=== PATIENT | male | born 1965 | race Hispanic/Latino ===

== ENCOUNTER 2017-08-06 18:52 | Emergency (ER) | payer SELFPAY ==
[2017-08-06 19:55] LABS: #Eosinphils 0.1 thou/uL (0.0-0.7); #Monocytes 0.7 thou/uL (0.11-0.59); #Neutrophils 6.3 thou/uL (1.40-6.50); %Basophils 0.1 % (0.0-1.0); %Eosinophils 0.8 % (0.0-10.0); %Lymphocytes 12.8 % (21.0-51.0); Hematocrit 33.2 % (42.0-52.0); Mean Platelet Volume 8.4 fL (7.4-10.4); Red Blood Cell (RBC) Count 3.82 mill/uL (4.70-6.10); White Blood Cell (WBC) Count 8.1 thou/uL (4.8-10.8)
[2017-08-06 19:59] LABS: PTT 30.5 SEC (22.9-36.1); Prothrombin Time 15.3 SEC (12.0-14.7)
[2017-08-06 20:15] LABS: ALT (SGPT) 26 U/L (8-55); AST (SGOT) 52 U/L (5-34); Alkaline Phosphatase 118 U/L (40-150); Anion Gap 12 mmol/L (10-20); BUN (Urea Nitrogen) 43 mg/dL (8.4-25.7); Bilirubin, Total 0.4 mg/dL (0.2-1.2); Calc. Creatinine Clearance 0 mL/min (70-130); Calcium 7.8 mg/dL (7.8-10.44); Carbon Dioxide 15 mmol/L (22-29); Chloride 104 mmol/L (98-107); Estimated GFR-MDRD 36; Lipase 246 U/L (8-78); Protein, Total 5.7 g/dL (6.0-8.3)
--- NOTE | 2017-08-06 20:47 | RAD ---
HISTORY: Abdominal pain and ascites. AP view chest obtained on 08/06/17. AP view chest demonstrates the lungs to be well aerated. No evidence of active intrathoracic disease seen. No evidence of effusions, pneumonia or pneumothorax seen. IMPRESSION: Unremarkable AP view chest. POS: [facility]
[2017-08-06] MEDS ORDERED: HYDROcodone/Acetaminophen 10/325 mg Tablet ONE (22:41)
== END 2017-08-06 22:46 | disposition home or self-care (01) ==
LOC: ERS 18:52
DX: R18.8 Other ascites (principal); Z79.899 Other long term (current) drug therapy
CPT/HCPCS: 71010; 80053; 83690; 85025; 85610; 85730; 93005

== ENCOUNTER 2017-08-13 12:34 | Inpatient (IN) | payer MEDICAID, SELFPAY ==
[2017-08-13 15:17] LABS: #Eosinphils 0.1 thou/uL (0.0-0.7); #Lymphocytes 1.1 thou/uL (1.20-3.40); #Monocytes 0.9 thou/uL (0.11-0.59); #Neutrophils 4.9 thou/uL (1.40-6.50); %Basophils 0.4 % (0.0-1.0); %Eosinophils 1.6 % (0.0-10.0); %Lymphocytes 15.9 % (21.0-51.0); Hematocrit 31.6 % (42.0-52.0); Mean Platelet Volume 8.7 fL (7.4-10.4); Red Blood Cell (RBC) Count 3.58 mill/uL (4.70-6.10); White Blood Cell (WBC) Count 7.1 thou/uL (4.8-10.8)
[2017-08-13 15:53] LABS: ALT (SGPT) 24 U/L (8-55); AST (SGOT) 48 U/L (5-34); Alkaline Phosphatase 139 U/L (40-150); Anion Gap 13 mmol/L (10-20); BUN (Urea Nitrogen) 48 mg/dL (8.4-25.7); Bilirubin, Total 0.4 mg/dL (0.2-1.2); Calc. Creatinine Clearance 0 mL/min (70-130); Calcium 7.5 mg/dL (7.8-10.44); Carbon Dioxide 15 mmol/L (22-29); Chloride 107 mmol/L (98-107); Estimated GFR-MDRD 45; Globulin 2.8 g/dL (2.4-3.5); Lipase 156 U/L (8-78); Protein, Total 5.2 g/dL (6.0-8.3)
[2017-08-13] MEDS ORDERED: Morphine 10 MG/ML VIAL ONE (16:45)
[2017-08-13] MEDS ORDERED: Ondansetron HCl/PF 4 MG/2 ML Vial IVP PRN (17:10)
[2017-08-13] MEDS ORDERED: Sodium Chloride 0.9% 1,000 ML IV SCH (17:15)
[2017-08-13] MEDS ORDERED: Potassium Chloride 20 MEQ TAB PO SCH (17:30)
[2017-08-13 18:18] VITALS: BMI 24.7
[2017-08-13] MEDS ORDERED: FLU VACC QS2017-18 36 mo. & older 0.5 ML SYRINGE IM ONE (18:30)
[2017-08-13] MEDS: Nicotine 21 MG PATCH TD SCH (18:34)
--- NOTE | 2017-08-13 22:28 | HP ---
CHIEF COMPLAINT: Abdominal pain. HISTORY OF PRESENT ILLNESS: This is a 52-year-old pleasant gentleman with a history of cirrhosis an d ascites, comes into the hospital with abdominal distention and pain or discomfort because of that. The patient says that he gets his fluid removed at least 1 every week and the last time he removed was in this ED one week ago and paracentesis was performed. He came back to the hospital because o f distention of the abdomen. Denies any fever, chills, diarrhea, dysuria, or polyuria. He had one episode of hematemesis last year for which he was treated in the different hospital. He has not vom ited any blood since then. He has been admitted for further evaluation and treatment of that. PAST MEDICAL HISTORY: The patient's past medical history is significant for cirrhosis, hepatitis C. SOCIAL HISTORY: Former drug user, used to drink a lot before. Denies any drinking right now. [employer] executive use, used to do IV cocaine in the past. MEDICATIONS: Aldactone. He says he is compliant with that. ALLERGIES: No known drug allergies. PAST SURGICAL HISTORY: Significant for umbilical hernia repair. FAMILY HISTORY: Negative for diabetes and hypertension. REVIEW OF SYSTEMS: Significant for abdominal discomfort and distention, otherwise, no fever, no chi lls, no headache, no appetite, no hearing loss, no latencies. No cough, no chest pain. No diarrhea , dysuria, or polyuria. No memory or mood changes. No neck pain. PHYSICAL EXAMINATION: VITAL SIGNS: Blood pressure is 112/73, pulse is 109, respirations 18, temperature 98.5. GENERAL: Patient is lying in bed, in no apparent distress. HEENT: Atraumatic and normocephalic. Pupils are equally round and react to light. Extraocular mov ements intact. Mucous membranes moist. NECK: Supple. No JVD. CHEST: Breath sounds. There are no rales or rhonchi. HEART: S1 and S2. No murmurs or gallops. ABDOMEN: Soft, distended, umbilical hernia scar seen. Right inguinal hernia present, which is redu cible, tympanic to percussion. EXTREMITIES: No cyanosis, clubbing, or edema. Distal pulses present. NEUROLOGIC: Alert, awake, and oriented. No cranial deficits. No sensorimotor deficits. LABORATORY DATA: Lipase is 156, potassium is 3.4, sodium is 132, creatinine is 1.62, BUN is 48, kyrie cium is 7.5, albumin is 2.4. ASSESSMENT AND PLAN: 1. Abdominal discomfort secondary to fluid accumulation secondary to ascites. They will arrange fo r an ultrasound-guided paracentesis and send the fluid for studies. We will consult GI. We will co nsult case management to see if they can make arrangements for this patient to get tapped as an outp atient, so that he does not have to come back to the emergency room all the time. Also, there is a transient elevation in the lipase. We will check, trend lipase to see and make recommendations. We will keep him on clear liquid diet for now. 2. Hepatitis C, stable. Follow GI plan, cirrhosis with ascites with one episode of hematemesis. N o episodes of hepatic encephalopathy. We will follow GI recommendations. We will continue spironol actone and further medications per GI. 3. Hyponatremia. We will gently hydrate the patient with 50 mL of normal saline for a day. 4. Hypokalemia. We will replace that. 5. Acute renal failure probably secondary to dehydration. We will monitor creatinine function in t his hospital stay. 6. Elevated BUN. We will check for fecal occult blood. 7. Right inguinal hernia. Reducible, though it hurts when he walks. He says that it is reducible. We will consult with GI to see what needs to be done. 8. History of cocaine use. The patient states he stopped using. 9. Protein calorie malnutrition, moderate. We will encourage p.o. Patient to continue to eat well and get dietary consult. 10. Sequential compression devices for deep venous thrombosis prophylaxis. I will follow the labs and do the need for.
[2017-08-14] MEDS: Morphine 10 MG/ML VIAL SLOW IVP PRN ×2 (00:36→09:55)
[2017-08-14 05:40] LABS: #Eosinphils 0.2 thou/uL (0.0-0.7); #Lymphocytes 1.3 thou/uL (1.20-3.40); #Monocytes 0.9 thou/uL (0.11-0.59); #Neutrophils 3.8 thou/uL (1.40-6.50); %Basophils 0.4 % (0.0-1.0); %Eosinophils 2.5 % (0.0-10.0); %Lymphocytes 21.3 % (21.0-51.0); %Monocytes 14.7 % (0.0-10.0); Hematocrit 28.5 % (42.0-52.0); Mean Platelet Volume 7.9 fL (7.4-10.4); Red Blood Cell (RBC) Count 3.22 mill/uL (4.70-6.10); White Blood Cell (WBC) Count 6.2 thou/uL (4.8-10.8)
[2017-08-14 05:51] LABS: Anion Gap 12 mmol/L (10-20); BUN (Urea Nitrogen) 47 mg/dL (8.4-25.7); Calc. Creatinine Clearance 57 mL/min (70-130); Calcium 7.7 mg/dL (7.8-10.44); Carbon Dioxide 14 mmol/L (22-29); Chloride 107 mmol/L (98-107); Estimated GFR-MDRD 43; Lipase 81 U/L (8-78)
[2017-08-14] MEDS ORDERED: Sodium Bicarbonate 2.4 MEQ/5 ML ONE (07:38)
[2017-08-14 08:39] LABS: BF Reference Range Comment Note:
[2017-08-14 09:11] LABS: Fluid, LDH 28 U/L (Not Available); Fluid, Protein Less than 1.0 g/dL (Not Available)
[2017-08-14 09:42] LABS: BF Color Yellow
[2017-08-14 09:46] LABS: BF WBC/Nonhematics Ct. - Manua 22 /cumm
[2017-08-14 10:09] LABS: Number Cells Counted-Fluids 100
[2017-08-14] MEDS ORDERED: Albumin 25% 25 GM/100 ML BOT IVPB SCH (12:15)
--- NOTE | 2017-08-14 12:41 | ULT ---
SONOGRAPHIC GUIDED PARACENTESIS: HISTORY: Hepatitis. Cirrhosis. Recurrent ascites. FINDINGS: After explaining the procedure and answering all questions, the anterior aspect of the right lower q uadrant was prepped and draped in the usual sterile fashion. Sterile technique, buffered local anes thesia, sonographic guidance, and an anterior right lower quadrant approach were used to carefully a dvance the tip of a 19 gauge Yueh needle and catheter into the free fluid. The catheter was left to drain a total volume of 6 L of slightly milky white liquid. A portion was sent to the laboratory f or analysis. The patient tolerated the procedure well and was returned in improved condition. IMPRESSION: Technically successful sonographic guided paracentesis. POS: [facility]
--- NOTE | 2017-08-14 16:13 | DIS ---
DATE OF ADMISSION: 08/13/2017 DATE OF DISCHARGE: 08/14/2017 DIAGNOSES ON ADMISSION: Abdominal pain, secondary to ascites, secondary to cirrhosis of liver. The patient also has hepatitis C. Patient also uses tobacco. DISCHARGE DIAGNOSES: 1. History of IV cocaine use in the past. 2. Hyponatremia. 3. Hypokalemia. 4. Some dehydration. 5. Patient also has a right inguinal hernia, which is stable. 6. The patient also has protein-calorie malnutrition. DISCHARGE MEDICATIONS: Aldactone 25 mg p.o. daily, Lasix 20 mg p.o. daily, Nexium 20 mg. CONSULTATIONS: The patient's consultants on the case were GI. BRIEF HOSPITAL COURSE: This is a 52-year-old pleasant gentleman, who was apparently in his usual [facility], came into the hospital with abdominal pain, because of abdominal distention secondary to ascites. He was admitted to the hospital. He had a paracentesis done and 6 liters were removed . He also got some albumin after that and he is right now medically stable to be discharged with ou tpatient follow up with PCP and he is asked to come back to the emergency room in case symptoms recu r. Total time for this discharge took 35 minutes.
[2017-08-14] MEDS: HYDROcodone/Acetaminophen 5/325 mg Tablet PO PRN (22:07)
[2017-08-14] MEDS: Nicotine 21 MG PATCH TD SCH (23:33)
[2017-08-15] MEDS ORDERED: ISOVUE-370 76%-LOCM 1 ML ONE (07:43)
--- NOTE | 2017-08-15 12:22 | ULT ---
LIMITED ABDOMINAL SONOGRAM: HISTORY: Recurrent ascites. FINDINGS: Sonographic survey of the abdomen shows a moderate to large amount of remaining fluid. The patient had a paracentesis performed one day ago with 6 L drained. There is not good documentat ion of previous paracentesis and volumes drained. Given the high volume of his initial local draina ge yesterday, please wait an additional two days before draining additional fluid from the abdomen. POS: [facility]
[2017-08-15] MEDS ORDERED: Spironolactone 100 MG TAB PO SCH (14:00)
--- NOTE | 2017-08-15 14:27 | PDOC.PN ---
- Subjective Encounter Start Date: 08/15/17 Encounter Start Time: 14:24 c/o abd pain and distention no n/v no f/c - Objective MAR Reviewed: Yes Vital Signs & Weight: Vital Signs (12 hours) Temp Pulse Resp BP Pulse Ox 08/15/17 11:48 98.6 F 83 20 108/70 100 08/15/17 08:00 98.5 F 73 20 94/68 98 08/15/17 07:25 98.5 F 78 18 08/15/17 04:55 98.5 F 78 18 106/63 99 08/15/17 04:33 99 Weight Weight 172 lb 4.8 oz I&O: 08/14/17 08/15/17 08/16/17 06:59 06:59 05:59 Intake Total 452 1415 600 Output Total 350 6405 Balance 102 -4990 600 Result Diagrams: 08/14/17 05:25 08/14/17 05:25 Phys Exam - Physical Examination Constitutional: NAD HEENT: PERRLA Neck: no JVD Respiratory: no rales Cardiovascular: no significant murmur distended, fluid thrill appreciated Musculoskeletal: pulses present Neurological: moves all 4 limbs Psychiatric: A&O x 3 Dx/Plan (1) Ascites, malignant Code(s): R18.0 - MALIGNANT ASCITES Status: Acute (2) Cirrhosis Code(s): K74.60 - UNSPECIFIED CIRRHOSIS OF LIVER Status: Acute (3) Protein-calorie malnutrition, moderate Code(s): E44.0 - MODERATE PROTEIN-CALORIE MALNUTRITION Status: Acute (4) Hyponatremia Code(s): E87.1 - HYPO-OSMOLALITY AND HYPONATREMIA Status: Acute - Plan * do tap on thursday * f/u ct * f/u gi plan
[2017-08-15 14:55] LABS: Prothrombin Time 16.3 SEC (12.0-14.7)
--- NOTE | 2017-08-15 15:11 | CON ---
DATE OF CONSULTATION: 08/15/2017 REQUESTING PHYSICIAN: Syd Leon MD REASON FOR CONSULTATION: Cirrhosis and ascites. HISTORY OF PRESENT ILLNESS: Kennedy Middleton is a 52-year-old gentleman who is new to [facility] just move d here about a week ago from [place]. He is admitted to the hospital a couple of nights ago with rec urrent ascites. He has not established care with any providers here in [facility] yet. It is a bit diffi cult to obtain history from the patient is for some reason he seems hesitant offer any details about his history why he came to [facility], etc. Briefly, he explains that he was diagnosed with cirrhosis a couple of years ago. When asked what his presenting symptoms are, he says \\\\"they just wanted to st art doing a bunch of tests.\\\\" It seems that he was diagnosed with hepatitis C. Other providers preciado ve documented that he used to abuse alcohol, but he denies to me that he ever abused alcohol. He do es not drink any alcohol at this time. He does say that he was told that he had hepatitis C and low t this was never treated. He seems to recall the name of the medication lactulose, but is unsure wh ether he ever had any encephalopathy and he has not been taking lactulose recently. He is unsure wh en his last cross sectional abdominal imaging was or whether he ever had any. He does say that he h as had issues with ascites for the past couple of years and that for 2 years, he has been getting we ekly paracentesis at the hospital in [place], [place]. He tells me he was taking spironolactone 2 5 mg daily, but had run out of that medicine since arrival here and is currently not been taking any thing. I asked if he had ever been on other diuretics prior to this and he said he thinks he had be en on Lasix before, but it did not work so he was taken off of it. He has not been on any low sodiu m diet, says he has never heard of the low sodium diet. He came into the ER just after arrival into [facility] a week ago when he had a paracentesis of 4 liters at that time, he came back to the ER 2 night s ago and it was decided to admit him for further workup and paracentesis. Yesterday, he had a para centesis of 6 liters of fluid, but his abdomen remains very distended. He says that he has 12 to 15 liters of fluid removed every week and he cannot understand why this is being done. He is quite ru de and is frankly demanding to have repeat paracentesis today. Though, Radiology has rightly recomm ended against this. The patient had really does not have any other symptoms aside from abdominal di scomfort due to the distention from ascites. He does not appear to be encephalopathic and denies an y confusion. He says that he thinks he had an upper endoscopy in the past, is unsure what the findi ngs are, it does not look like he was never put on any medications for variceal prophylaxis. REVIEW OF SYSTEMS: Full review of systems including constitutional, head, eyes, ears, nose, throat, GI, , cardiovascular, respiratory, musculoskeletal, and neurologic systems is negative except as noted in the HPI. PAST MEDICAL HISTORY: Hepatitis C, cirrhosis, ascites with frequent paracentesis at an outside hosp ital in [place], umbilical hernia repair. ALLERGIES: No known drug allergies. OUTPATIENT MEDICATIONS: Spironolactone 25 mg daily, but the patient says he ran out of this several days ago. INPATIENT MEDICATIONS: [place] p.r.n., Zofran p.r.n. FAMILY HISTORY: Negative for liver disease. SOCIAL HISTORY: The patient denies smoking. He has a history of prior cocaine use. He has yoli singh prior history of alcohol abuse, but to me he denies any alcohol use. PHYSICAL EXAMINATION: VITAL SIGNS: Temperature 98.6, pulse 83, blood pressure 108/70, 100% oxygen saturation on room air. GENERAL: A 52-year-old man lying in bed comfortably in no acute distress. MENTAL: He is alert and oriented. He is able to answer questions appropriately, but he is not very forthcoming in his answers, frankly refusing to answer some questions and quite rude. SKIN: No jaundice, no rashes were palpable. He has multiple tattoos to the trunk and extremities. EYES: No scleral icterus. Extraocular movements intact. ENT: Mucous membranes moist, no oral lesions. LYMPH: No submandibular, supraclavicular lymphadenopathy. THYROID: Nontender to palpation. HEART: Regular rate and rhythm. LUNGS: Clear to auscultation bilaterally. ABDOMEN: Markedly distended with ascites, tense, dullness to percussion in the flanks. Bowel sound s are present, soft, nontender to palpation throughout. EXTREMITIES: No peripheral edema. VESSELS: Radial pulses 2+ bilaterally. NEUROLOGICAL: Cranial nerves II-XII intact bilaterally, no asterixis. LABORATORY STUDIES: WBC 6.2, hemoglobin 9.1, platelets 167. Sodium 129, potassium 4.1, BUN 47, cre atinine 1.68. Ammonia only 25, lipase 81. Total bilirubin 0.4, alkaline phosphatase 139, AST 48, A LT 24, albumin 2.4. Paracentesis fluid studies from yesterday show only 22 WBCs, fluid total protei n is less than 1, triglycerides 45, fluid cultures shows no growth to date. IMAGING STUDIES: Abdominal ultrasound shows moderate to large amount of ascites. This was a limite d ultrasound and really did not get good views of the liver or biliary system. ASSESSMENT AND PLAN: 1. Cirrhosis. 2. Reported history of hepatitis C. 3. Ascites, evidently refractory for the past couple of years. This is a difficult situation. The patient is new to [facility] and has very specific expectations on what he needs, but it appears has been either noncompliant with therapy or has not been forthcoming with prior treatment recommendations f rom his physicians in [place]. It is not clear to me whether his ascites is truly refractory or whet her he has ever had a good trial of low sodium diet and diuretics. I would favor being aggressive w ith diuretics if able based on renal function and blood pressures, as well as strict adherence to a low sodium diet of less than 2000 mg per day. He may indeed need several more paracentesis, but low t is not really evident to me yet. The problem is that he is quite demanding about this and is thre atening to leave the hospital, but also refusing to leave the hospital when comes down to it. He also needs further workup to definitively documented hepatitis C genotype and viral load, etc. H e needs HCC screening so we will order an AFP as well as cross sectional imaging with a CT of the li richardson. He needs other liver lab workup to exclude other causes for cirrhosis and portal hypertension and I have gone ahead and ordered that. At some point, he will need an upper endoscopy to screen fo r esophageal varices, but there is no concern for bleeding at this time. He does not appear to have any hepatic encephalopathy, so I think we can avoid lactulose at present. As he is uninsured and s eems to have such that issue with noncompliance, I do not think he would be a candidate for liver tr ansplant or liver transplant center referral at this time.
--- NOTE | 2017-08-15 16:46 | CT ---
CT ABDOMEN AND PELVIS WITH IV CONTRAST 08/15/17 HISTORY: Abdominal pain. Cirrhosis. FINDINGS: Mild atelectasis is present at the lung bases. A large amount of free fluid is present throughout th e abdomen and pelvis and extends into a right inguinal hernia. The liver is small with a nodular con tour and heterogeneous density. Hyperdense stones are present within the dependent portion of the ga llbladder lumen. The spleen is 12.8 cm in length. Small calcifications are present within nondilated calyces of each kidney, measuring up to 0.5 cm at the superior pole of the right kidney. There is c alcification in the arterial structures. IMPRESSION: 1. Cirrhosis with mild splenomegaly and large amount of ascites. 2. Cholelithiasis. 3. Nonobstructing bilateral renal calculi. POS: [facility]
[2017-08-15] MEDS: Nicotine 21 MG PATCH TD SCH (18:28)
[2017-08-15] MEDS: MORPHINE 10 MG/ML SYRINGE IV PRN (20:53)
[2017-08-15] MEDS: Acetylcysteine 10% 100 MG/ML 30 ml Vial PO SCH (20:56)
[2017-08-16 05:27] LABS: Anion Gap 11 mmol/L (10-20); BUN (Urea Nitrogen) 42 mg/dL (8.4-25.7); Calc. Creatinine Clearance 62 mL/min (70-130); Calcium 7.6 mg/dL (7.8-10.44); Carbon Dioxide 15 mmol/L (22-29); Chloride 107 mmol/L (98-107); Estimated GFR-MDRD 47
[2017-08-16] MEDS: MORPHINE 10 MG/ML SYRINGE IV PRN ×3 (08:01→23:52)
[2017-08-16] MEDS: Furosemide 40 MG TAB PO SCH (08:01)
[2017-08-16] MEDS: Acetylcysteine 10% 100 MG/ML 30 ml Vial PO SCH ×2 (11:35→21:57)
[2017-08-16] MEDS: HYDROcodone/Acetaminophen 5/325 mg Tablet PO PRN (11:37)
--- NOTE | 2017-08-16 12:31 | PDOC.PN ---
- Subjective Encounter Start Date: 08/16/17 Encounter Start Time: 10:40 Subjective: has abd distention with dyscomfort - Objective MAR Reviewed: Yes Vital Signs & Weight: Vital Signs (12 hours) Temp Pulse Resp BP Pulse Ox 08/16/17 11:53 98.1 F 107 H 16 118/1 L 100 08/16/17 08:00 98.4 F 91 16 99 08/16/17 07:17 98.4 F 91 16 117/74 99 08/16/17 04:00 98.3 F 88 16 110/66 99 Weight Weight 172 lb 4.8 oz I&O: 08/15/17 08/16/17 08/17/17 07:59 06:59 06:59 Intake Total Output Total Balance Result Diagrams: 08/14/17 05:25 08/16/17 04:57 Phys Exam - Physical Examination HEENT: PERRLA, moist MMs Neck: no JVD, supple Respiratory: no wheezing, no rales Cardiovascular: RRR, no significant murmur Gastrointestinal: positive bowel sounds ascites+++ Musculoskeletal: no edema, pulses present Neurological: non-focal, moves all 4 limbs Psychiatric: A&O x 3 Dx/Plan (1) Ascites of liver Code(s): R18.8 - OTHER ASCITES Status: Acute (2) CIRA (acute kidney injury) Code(s): N17.9 - ACUTE KIDNEY FAILURE, UNSPECIFIED Status: Acute Comment: hepatorenal syndrome (3) Iron deficiency anemia Code(s): D50.9 - IRON DEFICIENCY ANEMIA, UNSPECIFIED Status: Acute Qualifiers: Iron deficiency anemia type: unspecified iron deficiency Qualified Code(s) : D50.9 - Iron deficiency anemia, unspecified (4) Metabolic acidosis Code(s): E87.2 - ACIDOSIS Status: Acute (5) Hepatitis C Code(s): B19.20 - UNSPECIFIED VIRAL HEPATITIS C WITHOUT HEPATIC COMA Status: Chronic Qualifiers: Viral hepatitis chronicity: chronic (6) Cirrhosis Code(s): K74.60 - UNSPECIFIED CIRRHOSIS OF LIVER Status: Chronic Qualifiers: Ascites presence: with ascites (7) Hyponatremia Code(s): E87.1 - HYPO-OSMOLALITY AND HYPONATREMIA Status: Acute Comment: sec to cirrhosis (8) Protein-calorie malnutrition, moderate Code(s): E44.0 - MODERATE PROTEIN-CALORIE MALNUTRITION Status: Chronic - Plan for paracentesis in am -: poor prognosis -: cm for help with setting up outpt paracentesis with radiology weekly -: had recent paracentesis with removal of 6lts white fluid? -: will add propranolol, no spironolactone due to cira, is on lasix * . Review of Systems - Medications/Allergies Allergies/Adverse Reactions: Allergies Allergy/AdvReac Type Severity Reaction Status Date / Time No Known Allergies Allergy Unverified 08/13/17 17:23 Medications: Current Medications Hydrocodone Bitart/Acetaminophen (Sabael 5/325) 1 tab PO Q4H PRN PRN Reason: Moderate Pain (4-6) Last Admin: 08/14/17 22:07 Dose: 1 tab Acetylcysteine (Mucomyst 10% (Oral Or Inh)) 600 mg PO BID KATHRYN Last Admin: 08/16/17 11:35 Dose: 6 ml Furosemide (Lasix) 40 mg PO DAILY-AC KATHRYN Last Admin: 08/16/17 08:01 Dose: 40 mg Lactulose (Lactulose) 20 gm PO DAILYPRN PRN PRN Reason: Constipation Morphine Sulfate (Morphine) 2 mg IV Q8H PRN PRN Reason: .SEVERE PAIN Last Admin: 08/16/17 08:01 Dose: 2 mg Nicotine (Nicoderm Patch) 21 mg TD Q24HR KATHRYN Last Admin: 08/15/17 18:28 Dose: Not Given Ondansetron HCl (Zofran) 4 mg IVP Q6H PRN PRN Reason: Nausea/Vomiting Last Admin: 08/13/17 21:11 Dose: 4 mg Sodium Chloride (Flush - Normal Saline) 10 ml IVF Q12HR KATHRYN Sodium Chloride (Flush - Normal Saline) 10 ml IVF PRN PRN PRN Reason: Saline Flush
--- NOTE | 2017-08-16 14:55 | PRG ---
DATE OF SERVICE: 08/16/2017 GI INPATIENT DAILY PROGRESS NOTE SUBJECTIVE: Mr. Middleton feels about the same. Abdomen remains distended. No worsening abdominal pain, nausea, or vomiting. No other complaints. PHYSICAL EXAMINATION: VITAL SIGNS: Temperature 98.1, pulse 107, blood pressure 118/74, and 100% oxygen saturation on room air. GENERAL: No acute distress. HEART: Regular rate and rhythm. LUNGS: Clear to auscultation bilaterally. ABDOMEN: Markedly distended with ascites, tense, but nontender to palpation. EXTREMITIES: No peripheral edema. LABORATORY STUDIES: INR 1.3. Hemoglobin 9.1, WBC 6.2, and platelets 167. Sodium 129, potassium 4. 1, BUN 42, creatinine 1.55. AFP is only 6.5. Ferritin is 18.1. Iron 33. TIBC 279, total bilirubi n 0.4, alkaline phosphatase 139, AST is 48, ALT 24, ammonia only 45. Viral hepatitis serology is ne gative for A and B, hepatitis C antibody is positive. HIV is negative. Total IgG is 799, autoimmun e markers are pending. IMAGING STUDIES: CT of the abdomen and pelvis from yesterday showed cirrhosis with mild splenomegal y and a large amount of ascites. There is cholelithiasis, no liver lesions identified. ASSESSMENT AND PLAN: 1. Cirrhosis. 2. Hepatitis C. 3. Ascites, chronic and refractory. Continue low sodium diet. Continue diuretics. We started Las ix 40 mg daily. Consider adding spironolactone back if renal function permits. I had a long discus lucinda with the patient about sodium intake as well as compliance with the diuretics. We need to try to get him down to less frequent paracentesis. Dr. Arenas is planned to send him for repeat ul trasound guided paracentesis tomorrow and that is reasonable. It would be reasonable to remove 7-8 liters if possible. If removing 6 liters of more fluid, please give 50 grams of IV albumin at that time.
[2017-08-16] MEDS: Nicotine 21 MG PATCH TD SCH (18:04)
[2017-08-16] MEDS: Propranolol HCl 20 MG TAB PO SCH (21:57)
[2017-08-17 04:49] LABS: Anion Gap 11 mmol/L (10-20); BUN (Urea Nitrogen) 40 mg/dL (8.4-25.7); Calc. Creatinine Clearance 57 mL/min (70-130); Calcium 7.8 mg/dL (7.8-10.44); Carbon Dioxide 17 mmol/L (22-29); Chloride 104 mmol/L (98-107); Estimated GFR-MDRD 43
[2017-08-17] MEDS ORDERED: Sodium Bicarbonate 2.4 MEQ/5 ML ONE (08:19)
[2017-08-17] MEDS: Furosemide 40 MG TAB PO SCH ×2 (08:57→10:29)
[2017-08-17 09:03] VITALS: TEMP 97.5
[2017-08-17] MEDS: Acetylcysteine 10% 100 MG/ML 30 ml Vial PO SCH (10:27)
[2017-08-17] MEDS: Propranolol HCl 20 MG TAB PO SCH (10:28)
[2017-08-17 10:48] VITALS: BP 109/57
--- NOTE | 2017-08-17 11:08 | ULT ---
ULTRASOUND RIGHT LOWER QUADRANT PARACENTESIS: INDICATIONS: Ascites. TECHNIQUE: Informed consent was obtained. Pre-procedure ultrasound demonstrated a prominent amount of fluid see n within the abdominal cavity. The site overlying the right lower quadrant was marked. The site was prepped and draped in the usual sterile fashion. Under ultrasound guidance, a 5 [place] Yueh cathete r was guided into the larger collection in the right lower quadrant, and 8 L of normal appearing karli toneal fluid was removed. The patient tolerated the procedure without difficulty. IMPRESSION: Successful ultrasound-guided paracentesis with removal of 8 L of peritoneal fluid. POS: [facility]
[2017-08-17 11:13] LABS: Ceruloplasmin 21.3 mg/dL (16.0-31.0)
--- NOTE | 2017-08-17 12:02 | PDOC.PN ---
- Subjective Encounter Start Date: 08/17/17 Encounter Start Time: 11:15 Subjective: had paracentesis with removal of 8 liters today -: is oriented well, wants to go home - Objective MAR Reviewed: Yes Vital Signs & Weight: Vital Signs (12 hours) Temp Pulse Resp BP Pulse Ox 08/17/17 10:47 109/57 L 08/17/17 09:02 97.5 F L 61 18 110/73 100 08/17/17 08:00 97.5 F L 61 18 100 08/17/17 04:00 98.0 F 60 16 99/62 100 Weight Weight 172 lb 4.8 oz I&O: 08/16/17 08/17/17 08/18/17 06:59 06:59 06:59 Intake Total 490 Output Total Balance 490 Result Diagrams: 08/14/17 05:25 08/17/17 03:58 Phys Exam - Physical Examination HEENT: PERRLA, sclera anicteric Neck: no JVD, supple Respiratory: no wheezing, no rales Cardiovascular: RRR, no significant murmur Gastrointestinal: soft, positive bowel sounds distention/ascites better Musculoskeletal: no edema, pulses present Neurological: non-focal, moves all 4 limbs Psychiatric: A&O x 3 Dx/Plan (1) Ascites of liver Code(s): R18.8 - OTHER ASCITES Status: Acute (2) CIRA (acute kidney injury) Code(s): N17.9 - ACUTE KIDNEY FAILURE, UNSPECIFIED Status: Acute Comment: hepatorenal syndrome (3) Iron deficiency anemia Code(s): D50.9 - IRON DEFICIENCY ANEMIA, UNSPECIFIED Status: Acute Qualifiers: Iron deficiency anemia type: unspecified iron deficiency Qualified Code(s) : D50.9 - Iron deficiency anemia, unspecified (4) Metabolic acidosis Code(s): E87.2 - ACIDOSIS Status: Acute (5) Hepatitis C Code(s): B19.20 - UNSPECIFIED VIRAL HEPATITIS C WITHOUT HEPATIC COMA Status: Chronic Qualifiers: Viral hepatitis chronicity: chronic (6) Cirrhosis Code(s): K74.60 - UNSPECIFIED CIRRHOSIS OF LIVER Status: Chronic Qualifiers: Ascites presence: with ascites (7) Hyponatremia Code(s): E87.1 - HYPO-OSMOLALITY AND HYPONATREMIA Status: Acute Comment: sec to cirrhosis (8) Protein-calorie malnutrition, moderate Code(s): E44.0 - MODERATE PROTEIN-CALORIE MALNUTRITION Status: Chronic - Plan counselled to stay in view of large volume paracentesis with sbp around 90 -: pt is oriented well and wants to sign out AMA -: plan was to give his alb infusions q8h x3 doses at least -: CM cannot arrange outpt paracentesis as he does not have PCP. -: will not have f/u with patient and cannot order the above per laura * . -e nurse. He is oriented and is aware of risks including hypotension, syncope and if he signs out AMA. Review of Systems - Medications/Allergies Allergies/Adverse Reactions: Allergies Allergy/AdvReac Type Severity Reaction Status Date / Time No Known Allergies Allergy Unverified 08/13/17 17:23
--- NOTE | 2017-08-17 22:36 | DIS ---
DATE OF ADMISSION: 08/13/2017 DATE OF DISCHARGE: 08/17/2017 DISCHARGE DISPOSITION: To home. Please note patient signed out against medical advice. PRIMARY DISCHARGE DIAGNOSES: Large volume ascitis status post paracentesis with removal of 8 L, acute kidney injury likely hepatorenal syndrome, cirrhosis with hepatitis C, metabolic acidosis, anemia, hyponatremia, and moderate protein malnutrition due to cirrhosis. PROCEDURES DONE DURING HOSPITALIZATION: Please note patient had paracentesis done with removal of 6 L on the 3rd. He has had paracentesis done today with removal of 8 L. Abdominal and pelvic CAT scan done on the day of admission showed findings of cirrhosis with mild splenomegaly and large amount of ascites , cholelithiasis, nonobstructing bilateral renal calculi was seen. Ascitic fluid culture sent on the showed no organisms. There were few WBC seen, no growth in 3 days, H and H 9 and 28 with platelet count of 167. PT/INR 16 and 1.3. Discharge BUN of 40, creatinine 1.6, ferritin 18.1, serum iron of 33. Ceruloplasmin was 21.3, which is within normal limits. AFP was 6.5 ng per mL, again within upper range of normal limits. AST 48, total bilirubin 0.4, ALT 24 , alkaline phosphatase 139, albumin was 2.4, lipase 159. Ammonia levels were 45. IgG total was 799. Mitochondrial M2 antibody and smooth muscle antibody titer were pending. Hepatitis C antibody was positive and a quantitative titer was pending at present. DISCHARGE MEDICATIONS: Nexium 20 mg daily. Patient to continue Lasix 40 mg daily. Propranolol 20 mg twice daily. Please note, patient signed out against advice. ALLERGIES: No known drug allergies. DISCHARGE PLAN: He needs to establish a primary care physician and followup in 1 week. BRIEF COURSE DURING HOSPITALIZATION: The patient got admitted on the with complaints of abdominal distention and discomfort. He apparently has had recurrent paracentesis done for cirrhosis. He had nearly 6 L of ascitic fluid removed on the 3rd. Patient got reaccumulated and had a repeat paracentesis done this morning with removal of 8 L. His systolic blood pressures were 96. He was advised to stay for another 24 hours with albumin infusions to get his blood pressure back on track, but patient refused to stay and he signed out against advice. He is fully oriented and knows the risks involved including syncope, dizziness, and . The patient does not have a primary care physician and case management could not arrange weekly paracentesis in the outpatient setting for the same reason. Please see a face to face documentation for the day of discharge on [facility]. [facility]
[2017-08-18 09:20] LABS: Lipase-Fluid 17 U/L (.)
[2017-08-18 14:20] LABS: Hep C PCR-Quant 48100 IU/mL (.)
== END 2017-08-17 11:34 | disposition left against medical advice (07) | DRG 432 ==
LOC: ERS 12:34 → 2SW 16:28 → OBSVTOIN 16:28 → T4-B 08-15 16:15
PROVIDERS: ADMIT Internal Medicine; ATTEND Internal Medicine
PROC: 0W9G3ZZ Drainage of Peritoneal Cavity, Percutaneous Approach (ICD-10-PCS; principal; 2017-08-14)
PROC: 0W9G3ZZ Drainage of Peritoneal Cavity, Percutaneous Approach (ICD-10-PCS; 2017-08-17)
DX: K70.31 Alcoholic cirrhosis of liver with ascites (principal); K76.7 Hepatorenal syndrome; N17.9 Acute kidney failure, unspecified; E87.1 Hypo-osmolality and hyponatremia; E44.0 Moderate protein-calorie malnutrition; E87.2 Acidosis; B19.20 Unspecified viral hepatitis C without hepatic coma; E87.6 Hypokalemia; F17.210 Nicotine dependence, cigarettes, uncomplicated
CPT/HCPCS: 36415; 49083; 74177; 76705; 80048; 80053; 80074; 82105; 82140; 82390; 82728; 82945; 83516; 83540; 83550; 83615; 83690; 83735; 83986; 84157; 84478; 85025; 85060; 85610; 86038; 87070; 87205; 87389; 87522; 87902; 89051; 96374; A4216; J2270; J2405; J7608; P9047

== ENCOUNTER 2017-09-01 10:38 | Emergency (ER) | payer MEDICAID ==
[2017-09-01 11:19] LABS: #Basophils 0.1 thou/uL (0.0-0.2); #Eosinphils 0.3 thou/uL (0.0-0.7); #Lymphocytes 1.3 thou/uL (1.20-3.40); #Neutrophils 4.5 thou/uL (1.40-6.50); %Basophils 1.3 % (0.0-1.0); %Eosinophils 3.8 % (0.0-10.0); %Lymphocytes 17.7 % (21.0-51.0); %Monocytes 13.6 % (0.0-10.0); Hematocrit 28.2 % (42.0-52.0); Mean Platelet Volume 8.2 fL (7.4-10.4); Red Blood Cell (RBC) Count 3.24 mill/uL (4.70-6.10); White Blood Cell (WBC) Count 7.1 thou/uL (4.8-10.8)
[2017-09-01 11:35] LABS: ALT (SGPT) 40 U/L (8-55); AST (SGOT) 91 U/L (5-34); Alkaline Phosphatase 155 U/L (40-150); Anion Gap 8 mmol/L (10-20); BUN (Urea Nitrogen) 46 mg/dL (8.4-25.7); Bilirubin, Total 0.4 mg/dL (0.2-1.2); Calc. Creatinine Clearance 0 mL/min (70-130); Calcium 7.7 mg/dL (7.8-10.44); Carbon Dioxide 18 mmol/L (22-29); Chloride 107 mmol/L (98-107); Estimated GFR-MDRD 43; Lipase 154 U/L (8-78); Protein, Total 5.5 g/dL (6.0-8.3)
[2017-09-01 11:46] LABS: PTT 34.8 SEC (22.9-36.1); Prothrombin Time 15.6 SEC (12.0-14.7)
[2017-09-01] MEDS ORDERED: Albumin 25% 25 GM/100 ML BOT IVPB ONE (12:30)
[2017-09-01] MEDS ORDERED: Lidocaine 1% (PF) 30 ML VIAL ONE (12:33)
--- NOTE | 2017-10-10 14:59 | EKG ---
Test Reason : Blood Pressure : / mmHG Vent. Rate : 097 BPM Atrial Rate : 097 BPM P-R Int : 150 ms QRS Dur : 072 ms QT Int : 370 ms P-R-T Axes : 042 -01 014 degrees QTc Int : 469 ms Normal sinus rhythm Cannot rule out Anterior infarct , age undetermined Abnormal ECG Confirmed by BULMARO MARIE D.O. ([id number]), news video editor MARY RICHARDS ([id number]) on 10/10/2017 2:58:46 PM Referred By: FRANK Confirmed By:BULMARO MARIE D.O.
== END 2017-09-01 13:54 | disposition home or self-care (01) ==
LOC: ERS 10:38
DX: R10.33 Periumbilical pain (principal); R19.05 Periumbilic swelling, mass or lump; K74.60 Unspecified cirrhosis of liver; F41.9 Anxiety disorder, unspecified; F17.210 Nicotine dependence, cigarettes, uncomplicated
CPT/HCPCS: 36415; 80053; 82140; 83690; 85025; 85610; 85730; 93005; 96365; 96366; J2001; P9047

== ENCOUNTER 2017-09-06 16:37 | Observation (INO) | payer MEDICAID ==
[2017-09-06] MEDS ORDERED: Fentanyl 100 MCG/2 ML VIAL ONE (17:33)
[2017-09-06 18:00] LABS: #Basophils 0.1 thou/uL (0.0-0.2); #Eosinphils 0.2 thou/uL (0.0-0.7); #Lymphocytes 1.2 thou/uL (1.20-3.40); #Monocytes 0.7 thou/uL (0.11-0.59); %Basophils 0.8 % (0.0-1.0); %Eosinophils 3.1 % (0.0-10.0); %Lymphocytes 16.3 % (21.0-51.0); %Monocytes 9.2 % (0.0-10.0); Hematocrit 27.3 % (42.0-52.0); Mean Platelet Volume 8.5 fL (7.4-10.4); White Blood Cell (WBC) Count 7.1 thou/uL (4.8-10.8)
[2017-09-06 18:07] LABS: Prothrombin Time 16.1 SEC (12.0-14.7)
[2017-09-06 18:12] LABS: ALT (SGPT) 60 U/L (8-55); AST (SGOT) 116 U/L (5-34); Alkaline Phosphatase 123 U/L (40-150); Anion Gap 15 mmol/L (10-20); BUN (Urea Nitrogen) 45 mg/dL (8.4-25.7); Bilirubin, Total 0.4 mg/dL (0.2-1.2); Calc. Creatinine Clearance 0 mL/min (70-130); Carbon Dioxide 16 mmol/L (22-29); Chloride 110 mmol/L (98-107); Estimated GFR-MDRD 45; Globulin 3.1 g/dL (2.4-3.5); Protein, Total 5.8 g/dL (6.0-8.3)
[2017-09-06] MEDS ORDERED: Albumin 25% 25 GM/100 ML BOT IVPB SCH (20:45)
[2017-09-06] MEDS ORDERED: HYDROcodone/Acetaminophen 5/325 mg Tablet PO PRN (21:59)
[2017-09-06] MEDS ORDERED: Acetaminophen 325 MG TAB PO PRN (21:59)
[2017-09-06] MEDS ORDERED: HYDROcodone/Acetaminophen 10/325 mg Tablet PO PRN (21:59)
[2017-09-06] MEDS ORDERED: Ondansetron ODT 4 MG TAB PO PRN (21:59)
[2017-09-06] MEDS ORDERED: hydrOXYzine 25 MG TAB PO PRN (22:31)
--- NOTE | 2017-09-07 03:11 | HP ---
DATE OF ADMISSION: 09/06/2017 TIME OF SERVICE: 2100 hours PRIMARY CARE PHYSICIAN: None. CHIEF COMPLAINT: Abdominal distention and pain. HISTORY OF PRESENT ILLNESS: Mr. Middleton is a 52-year-old Latin-Ugand[place] male, known to our service from previous this month when he presented for abdominal pain. 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 He has had multiple paracenteses in the past, most recent, just few days ago. They attempt to do another one in 2-3 days ago, we unable to get any fluid out. Then increasing abdominal girth, pain and subsequent mechanical compression of his breathing apparatus has become more short of breath. He denies any fevers or chills, nausea, vomiting, diarrhea, constipation. No chest pain, no cough or sputum production or GI bleeding from above or below. I came back to emergency department today, the emergency department initially contacted [facility], they performed a paracentesis, removing 6 liters of fluid and sent for studies, and they realized he was just admitted 2 or 3 weeks ago and was referred to us for admission for bounce back. The patient states his belly is better, but still feels distended. Postop, the patient did become somewhat hypotensive with a systolic blood pressure in the 90s, though I suspect that probably has normal pressure given that he is cirrhotic. Due to an abundance of caution, the patient is being placed in observation. He has no other current complaints. PAST MEDICAL HISTORY: 1. Chronic hepatitis C. 2. Cirrhosis. 3. Anxiety. PAST SURGICAL HISTORY: Include hernia repair, umbilical. HOME MEDICATIONS: 1. Propranolol 20 mg p.o. b.i.d. 2. Lasix 40 mg b.i.d. 3. Nexium 20 mg daily. ALLERGIES: NKDA. FAMILY HISTORY: Negative for clotting or bleeding disorder. No immune dysfunction. SOCIAL HISTORY: Significant for just a few cigarettes per day, smoked since age 12. No IV drug use now, but does have a history that he does not want to talk about. Denies any alcohol use. REVIEW OF SYSTEMS: Ten-point review of systems was performed, negative for all other systems except stated in the HPI, with the exception of chronic itching on the arms and legs and scratching because of that. He also has some scratching behind his knees. PHYSICAL EXAMINATION: VITAL SIGNS: Temperature 98.0, pulse 105, blood pressure 120/76, respiratory rate 14, satting 96% on room air. GENERAL: He is awake. He is alert. He is oriented x3. He is a chronically ill-appearing Latin-Ugandan male, appears to be in no acute distress. HEENT: Normocephalic, atraumatic. Pupils are equal and reactive bilaterally. Mucous membranes are moist without visible lesion or thrush. Teeth are in poor repair. NECK: Supple. He has no lymphadenopathy, but does have JVD to approximately 5 cm when lying at 45 degrees. He has normal carotid upstrokes without bruits. There is no thyromegaly. LUNGS: Clear bilaterally. He has no wheezes, no rales, no rhonchi. Good air movement. He has to work pretty hard to get a deep breath, but is able to get good air movement. He has symmetrical chest excursion. CARDIOVASCULAR: Tachycardic but regular, normal S1, S2. I do not appreciate murmurs. ABDOMEN: Distended and tense. It is tender to palpation diffusely. He has no pain with heel tap. He does have a large umbilical hernia that is easily reducible. I cannot palpate internal organs. He does have shifting dullness. EXTREMITIES: Show no cyanosis, no clubbing. He does have trace bilateral pedal edema. He has 2+ peripheral pulses. SKIN: Dry. He has had chronic dermatitis of bilateral lower extremities. He does have multiple pinpoint scabs over the bilateral lower extremities from chronic scratching. He has large plaques present in the posterior knee and antecubital areas. It looks like it could be eczema or possibly even a variant of psoriasis. NEUROLOGIC: Cranial nerves II through XII are grossly intact without any focal neurologic deficit. MUSCULOSKELETAL: Normal to inspection. He has no inflamed joints and no palpable joint effusions. LABORATORY DATA: CMP showed a sodium 137, potassium 4.0, chloride 110, bicarbonate 16, BUN 45, creatinine 1.62, calcium 8.0, and glucose 100. Liver functions showed alkaline phosphatase of 123, AST 116, ALT 60, albumin is 2.7. INR is 1.3. Ammonia level 50. CBC showed a white count of 7.1, hemoglobin 9.0 , hematocrit of 27.3 and platelets 160,000. ASSESSMENT AND PLAN: 1. Recurrent ascites secondary to cirrhosis. The patient received . He likely remains hypotensive all the time. Still seems to have some fluid shifting dullness. He was given albumin in the ER. We will place in observation and watch. We may need to repeat up tomorrow. 2. Chronic hepatitis C with cirrhosis: As above. 3. Hypotension. The patient was apparently hypotensive on presentation. Being cirrhotic. He likely is always hypotensive in the 90s-100s. We will watch his blood pressure here. We will resume his home medication with propranolol, Lasix, and placed him on GI prophylaxis with Pepcid. I will hold off on any Lovenox due to his inherent current coagulopathy. The patient will be placed in observation. Likely will be able to go home in the morning. MTDD
[2017-09-07 05:18] VITALS: BMI 23.1
[2017-09-07 05:38] LABS: ALT (SGPT) 45 U/L (8-55); AST (SGOT) 78 U/L (5-34); Alkaline Phosphatase 108 U/L (40-150); Anion Gap 10 mmol/L (10-20); BUN (Urea Nitrogen) 42 mg/dL (8.4-25.7); Bilirubin, Total 0.4 mg/dL (0.2-1.2); Calc. Creatinine Clearance 62 mL/min (70-130); Calcium 7.7 mg/dL (7.8-10.44); Carbon Dioxide 16 mmol/L (22-29); Chloride 111 mmol/L (98-107); Estimated GFR-MDRD 52; Globulin 2.3 g/dL (2.4-3.5); Protein, Total 4.9 g/dL (6.0-8.3)
[2017-09-07] MEDS ORDERED: Loperamide HCl 2 MG CAP PO PRN (06:46)
[2017-09-07] MEDS ORDERED: Ondansetron HCl/PF 4 MG/2 ML Vial IVP PRN (06:46)
[2017-09-07] MEDS ORDERED: traMADol HCl 50 MG TAB PO PRN (06:46)
[2017-09-07] MEDS ORDERED: Eucerin (Mineral Oil/Petrolatum,White) 30 gm Jar TOP PRN (06:46)
[2017-09-07] MEDS ORDERED: Mag-Al 1200 mg/1200 mg/30 ML UDCUP PO PRN (06:46)
[2017-09-07] MEDS ORDERED: Milk Of Magnesia 30 ML UDCUP PO PRN (06:46)
[2017-09-07] MEDS ORDERED: Loratadine 10 MG TAB PO PRN (06:46)
[2017-09-07] MEDS ORDERED: Diabetic Tussin 200 MG/10 ML UDCUP PO PRN (06:46)
[2017-09-07] MEDS ORDERED: Senokot 8.6 MG TAB PO PRN (06:46)
[2017-09-07] MEDS ORDERED: Sodium Chloride 0.65% Nasal 44 ML BOT EA NARE PRN (06:46)
[2017-09-07] MEDS ORDERED: Artificial Tears 18 DROP/0.9 ML EA EYE PRN (06:46)
[2017-09-07] MEDS: Furosemide 40 MG TAB PO SCH ×2 (08:04→14:24)
[2017-09-07] MEDS ORDERED: Propranolol HCl 20 MG TAB PO SCH (09:00)
[2017-09-07] MEDS ORDERED: Famotidine 20 MG TAB PO SCH (09:00)
[2017-09-07 09:02] VITALS: TEMP 98.2
--- NOTE | 2017-09-07 15:40 | ULT ---
EXAM: ULTRASOUND GUIDED PARACENTESIS: COMPARISON: 08/17/17. FINDINGS: Successful ultrasound-guided paracentesis. A total of 5 L of yellow-colored ascites was removed. No immediate or post procedure complication. TECHNIQUE: Consent was obtained to perform an ultrasound-guided paracentesis. The patient's abdomen was evaluat ed. The right lower quadrant was deemed appropriate. The skin was prepped and draped in sterile fas hion. 1% Lidocaine, buffered with sodium bicarbonate, was used for local anesthesia. Under ultrasou nd guidance, a 5 [place] 7 cm Joyuseh catheter was advanced into the peritoneal space. Via vacuum bottle s, a total of 5 L of ascites was collected. The patient tolerated the procedure well. No immediate or post procedure complications. IMPRESSION: Technically successful ultrasound-guided paracentesis. POS: TAI
--- NOTE | 2017-09-07 15:59 | DIS ---
DATE OF ADMISSION: 09/06/2017 DATE OF DISCHARGE: 09/07/2017 PRIMARY CARE PHYSICIAN: [facility] call admission. DISCHARGE DISPOSITION: Home. PRIMARY DISCHARGE DIAGNOSES: Refractory ascites, status post paracentesis. SECONDARY DISCHARGE DIAGNOSES: Cirrhosis of liver, normocytic anemia, asymptomatic cholelithiasis, c hronic kidney disease stage 3, chronic hepatitis C, hyponatremia due to cirrhosis, protein-calorie ma lnutrition, bilateral asymptomatic renal calculi. PRIMARY PROCEDURE/OPERATION: Paracentesis was done. RADIOLOGICAL INVESTIGATION: None. SIGNIFICANT LABORATORY: WBC 7.1, hemoglobin 9.0, platelets 168. INR 1.3. Sodium 133, potassium 3.8 , chloride 111, carbon dioxide 16, BUN 42, creatinine 1.43, calcium 7.7, AST 78, ALT 45, alkaline vonda sphatase 108, albumin 2.6. Ascitic fluid culture is negative. DISCHARGE MEDICATIONS: Pepcid 20 mg p.o. b.i.d., Lasix 20 mg p.o. daily, lactulose 20 grams p.o. margaret ly p.r.n., Inderal 20 mg p.o. daily, Aldactone 25 mg p.o. daily. CONTRAINDICATIONS: None. CODE STATUS: FULL CODE. INPATIENT CONSULTANTS: None. ALLERGIES: No known drug allergy. DISCHARGE PLAN: Post hospital, the patient is advised to follow up with primary care physician and [facility] physician advised to arrange outpatient periodic paracentesis for his refractory ascites. HOSPITAL COURSE: A 52-year-old male with above mentioned medical problems, who was admitted by Dr. Palak Mcfadden. Please see his H&P for further details. This patient has underlying hepatitis C and he has end-stage cirrhosis with secondary portal hypertension and he has refractory ascites. He is requ iring multiple paracenteses in the past. He was having significant abdominal distention that was jair ing his quality of life affected. He was also feeling shortness of breath because of tense ascites a nd he was also having abdominal pain because of tense ascites. He was admitted to medical floor. We did a therapeutic paracentesis. Patient was given albumin after paracentesis. In the emergency rena m, 6 liter of fluid was removed and we are repeating again paracentesis through Radiology. This henrique ent will need outpatient arrangement for recurrent paracentesis because of rapid filling of ascites. At this point, his renal function is stable. The patient is tolerating paracenteses very well. He is hemodynamically stable. The patient is seen and examined at bedside today. All other review of systems was reviewed with him and negative. Dietary instruction given. PHYSICAL EXAMINATION: VITAL SIGNS: Currently, temperature 98.2, pulse 85, respiratory rate 20, saturation 99%, blood pres sure 111/63. Weight 161 pounds. GENERAL: The patient is currently alert, awake, no acute distress. HEAD: Normocephalic, atraumatic. LUNGS: Clear to auscultation without any wheezing or rhonchi. CARDIAC: S1, S2 regular without any murmur or gallop. ABDOMEN: Tense ascites noted. No peritoneal sign. No guarding, no rigidity, no rebound. BACK: Unremarkable. No CVA tenderness. EXTREMITIES: Upper extremity: Passive movement of all joints are normal. Lower extremity, no edema . NEUROLOGIC: Nonfocal examination. No asterixis. Overall, this patient is medically stable for discharge today.
[2017-09-07 16:12] VITALS: BP 91/62
== END 2017-09-07 18:55 | disposition home or self-care (01) ==
LOC: ERS 16:37 → T4-A 19:50
PROVIDERS: ADMIT Internal Medicine; ATTEND Internal Medicine
PROC: 0W9G3ZX Drainage of Peritoneal Cavity, Percutaneous Approach, Diagnostic (ICD-10-PCS; principal; 2017-09-07)
PROC: BW40ZZZ Ultrasonography of Abdomen (ICD-10-PCS; 2017-09-07)
DX: K74.60 Unspecified cirrhosis of liver (principal); R18.8 Other ascites; N18.3 Chronic kidney disease, stage 3 (moderate); D63.1 Anemia in chronic kidney disease; K80.20 Calculus of gallbladder without cholecystitis without obstruction; B18.2 Chronic viral hepatitis C; E87.1 Hypo-osmolality and hyponatremia; N20.0 Calculus of kidney; I95.9 Hypotension, unspecified; F17.210 Nicotine dependence, cigarettes, uncomplicated; E46 Unspecified protein-calorie malnutrition; Z68.23 Body mass index [BMI] 23.0-23.9, adult; Z79.899 Other long term (current) drug therapy; Z98.890 Other specified postprocedural states
CPT/HCPCS: 36415; 49082; 49083; 80053; 82140; 85025; 85610; 87070; 87205; 96361; 96365; 96375; G0378; J3010; P9047

== ENCOUNTER 2017-09-10 17:04 | Observation (INO) | payer MEDICAID, OTHER ==
[2017-09-10 19:37] LABS: #Basophils 0.1 thou/uL (0.0-0.2); #Eosinphils 0.2 thou/uL (0.0-0.7); #Lymphocytes 1.5 thou/uL (1.20-3.40); #Monocytes 0.7 thou/uL (0.11-0.59); #Neutrophils 6.4 thou/uL (1.40-6.50); %Basophils 0.7 % (0.0-1.0); %Eosinophils 2.3 % (0.0-10.0); %Lymphocytes 16.7 % (21.0-51.0); %Monocytes 7.6 % (0.0-10.0); Hematocrit 26.7 % (42.0-52.0); Mean Platelet Volume 8.1 fL (7.4-10.4); Red Blood Cell (RBC) Count 3.03 mill/uL (4.70-6.10); White Blood Cell (WBC) Count 8.8 thou/uL (4.8-10.8)
[2017-09-10] MEDS ORDERED: Morphine 4 MG/ML VIAL ONE (19:37)
[2017-09-10 19:53] LABS: ALT (SGPT) 34 U/L (8-55); AST (SGOT) 58 U/L (5-34); Alkaline Phosphatase 158 U/L (40-150); Anion Gap 10 mmol/L (10-20); BUN (Urea Nitrogen) 47 mg/dL (8.4-25.7); Bilirubin, Total 0.4 mg/dL (0.2-1.2); Calc. Creatinine Clearance 0 mL/min (70-130); Calcium 7.5 mg/dL (7.8-10.44); Carbon Dioxide 18 mmol/L (22-29); Chloride 107 mmol/L (98-107); Estimated GFR-MDRD 43; Globulin 2.8 g/dL (2.4-3.5); Lipase 114 U/L (8-78); Protein, Total 5.3 g/dL (6.0-8.3)
[2017-09-10] MEDS ORDERED: diphenhydrAMINE 25 MG CAP ONE (20:47)
--- NOTE | 2017-09-10 20:56 | PDOC.EVN ---
Event Note - Event Note Event Note: [id number] H&P Dictated 1. Ascites 2. Hyponatremia 3. Metabolic acidosis 4. Cirrhosis + Anxiety 5. CKD stage 3 plan: see orders
[2017-09-10] MEDS ORDERED: Ondansetron HCl/PF 4 MG/2 ML Vial IVP PRN (21:28)
[2017-09-10 22:27] VITALS: BMI 23.3
[2017-09-10] MEDS: traMADol HCl 50 MG TAB PO PRN (22:50)
[2017-09-11 04:35] LABS: #Basophils 0.1 thou/uL (0.0-0.2); #Eosinphils 0.3 thou/uL (0.0-0.7); #Lymphocytes 1.5 thou/uL (1.20-3.40); #Monocytes 0.9 thou/uL (0.11-0.59); #Neutrophils 4.4 thou/uL (1.40-6.50); %Basophils 0.9 % (0.0-1.0); %Eosinophils 3.7 % (0.0-10.0); %Lymphocytes 21.4 % (21.0-51.0); Hematocrit 23.3 % (42.0-52.0); Mean Platelet Volume 8.2 fL (7.4-10.4); Red Blood Cell (RBC) Count 2.65 mill/uL (4.70-6.10); White Blood Cell (WBC) Count 7.1 thou/uL (4.8-10.8)
[2017-09-11 04:47] LABS: Anion Gap 7 mmol/L (10-20); BUN (Urea Nitrogen) 46 mg/dL (8.4-25.7); Calc. Creatinine Clearance 58 mL/min (70-130); Calcium 7.2 mg/dL (7.8-10.44); Carbon Dioxide 19 mmol/L (22-29); Chloride 109 mmol/L (98-107); Estimated GFR-MDRD 48
--- NOTE | 2017-09-11 06:18 | HP ---
DATE OF ADMISSION: 11/10/2016 CHIEF COMPLAINT: Abdominal distention, ascites. HISTORY OF PRESENT ILLNESS: The patient is a 52-year-old male with past medical history of cirrhosis, ascites, hepatitis C, anxiety, came to the ER complaining of abdominal distention. The patient just got discharged from the hospital on 09/07/2017 after paracentesis. The patient that ever since he went home he did not take his Lasix. His abdomen started getting distended, could not able to breathe, the distention persisted as a result of abdominal discomfort also and pain because of the abdominal distention, so the patient came to the ER for paracentesis. Denies any fever, denies any chills, denies any chest pain, denies any nausea, denies any vomiting, denies any bloody stools , denies any black stools. PAST MEDICAL HISTORY: As per HPI. PAST SURGICAL HISTORY: Hernia repair. SOCIAL HISTORY: Positive for smoking, denies alcohol, denies any drugs. ALLERGIES: No known drug allergies. MEDICATIONS: Reviewed. REVIEW OF SYSTEMS: Constitutional: Denies any fever, denies any chills. Eyes : Vision problems. Ears: Denies any hearing loss. Neck: Denies any neck pain. Cardiovascular System: Denies any chest pain. Respiratory System: Denies any cough, denies any sputum production. Gastrointestinal: Positive for abdominal distention, positive for ascites. Genitourinary: No dysuria. Cranial Nerve System: Denies syncope, denies lightheadedness. Psychiatric: Denies anxiety. Integumentary: Denies any rash. All other review of systems are reviewed and are negative. PHYSICAL EXAMINATION: CONSTITUTIONAL/VITAL SIGNS: At the time of H&P performed, blood pressure is 151 /82, afebrile, pulse ox 97%. GENERAL: The patient appears comfortable. HEENT: Pupils equal, round and reactive to light. Anterior nares patent. Nose normal. Ears normal. Teeth normal. Tongue is moist. NECK: Supple. No JVD. CARDIOVASCULAR SYSTEM: S1, S2 present. Regular rate and rhythm. No murmurs, no rubs, no gallops. RESPIRATORY SYSTEM: No wheezing, no rhonchi. Breath sounds bilaterally. GASTROINTESTINAL: Abdomen is distended, positive for ascites, positive for fluid thrill. MUSCULOSKELETAL: Positive for 1-2+ edema. CRANIAL NERVE SYSTEM: Awake, follows commands. Strength intact. Sensory intact. PSYCHIATRIC: Mood appropriate at this time. INTEGUMENT: No obvious rashes seen. LABORATORY DATA: At the time of H&P performed, sodium 131, potassium 3.8, chloride 107, CO2 18, BUN 47, creatinine 1.85, glucose 130, AST 58, ALT 34, alkaline phosphatase 158, serum total protein 5.3. White count 8.8, hemoglobin 8.8, platelet count is 164. ASSESSMENT AND PLAN: The patient is a 52-year-old male. 1. Ascites. Plan to consult IR for ultrasound-guided paracentesis. Plan to monitor the patient closely. Plan to start the patient on Lasix 40 mg p.o. b.i.d. also. 2. Chronic kidney disease stage 3. Monitor creatinine closely and repeat basic metabolic panel in a.m. 3. Metabolic acidosis. Monitor bicarb level. If bicarbonate drops, start p.o. sodium bicarbonate. 4. Hyponatremia secondary to hypovolemia. Monitor sodium level. No need for salt tablets. 5. History of cirrhosis and hepatitis C, stable. Continue current treatment. 6. History of anxiety. On anxiolytics. Case was discussed in detail with the patient. DALE
[2017-09-11] MEDS ORDERED: Furosemide 20 MG TAB PO SCH (09:00)
[2017-09-11] MEDS ORDERED: Albumin 25% 25 GM/100 ML BOT IVPB SCH (10:45)
[2017-09-11] MEDS: Spironolactone 25 MG TAB PO SCH (11:26)
[2017-09-11] MEDS: traMADol HCl 50 MG TAB PO PRN (11:26)
[2017-09-11] MEDS: Famotidine 20 MG TAB PO SCH ×2 (11:26→20:33)
[2017-09-11] MEDS: oxyCODONE 5 MG TAB PO PRN ×2 (12:20→20:32)
--- NOTE | 2017-09-11 15:59 | ULT ---
SONOGRAPHIC GUIDED PARACENTESIS. HISTORY: Recurrent ascites. FINDINGS: After explaining the procedure and answering all questions, limited sonographic survey shows larger a mount of free fluid throughout the abdomen. Sterile technique, buffered local anesthesia, sonographic guidance, and a right lower quadrant anterior approach were used to carefully advance the tip of a 1 9 gauge Yueh needle and catheter into the free fluid. The catheter was left to drain a total of 10.0 liter clear yellow liquid. Postprocedure imaging shows a small amount of residual fluid. Catheter was withdrawn. Patient tolerated the procedure well and was returned in improved condition. IMPRESSION: Technically successful sonographic guidance paracentesis. POS: EDMUNDO
[2017-09-11] MEDS: Propranolol HCl 20 MG TAB PO SCH (16:42)
--- NOTE | 2017-09-11 17:49 | PDOC.PN ---
- Subjective Encounter Start Date: 09/11/17 Encounter Start Time: 17:47 Patient seen and examined. No new complaints. No overnight events - Objective MAR Reviewed: Yes Vital Signs & Weight: Vital Signs (12 hours) Temp Pulse Resp BP Pulse Ox 09/11/17 15:48 97.5 F L 89 18 128/69 100 09/11/17 11:12 97.4 F L 80 16 114/70 100 09/11/17 08:00 98.9 F 92 16 09/11/17 07:58 98.1 F 90 20 115/72 99 I&O: 09/10/17 09/11/17 09/12/17 06:59 06:59 06:59 Intake Total 240 200 Output Total 300 36220 Balance -60 -9800 Result Diagrams: 09/11/17 04:17 09/11/17 04:17 Phys Exam - Physical Examination Constitutional: NAD HEENT: PERRLA Neck: no JVD Respiratory: no wheezing Cardiovascular: RRR distented, fluid thrill Musculoskeletal: pulses present Neurological: moves all 4 limbs Psychiatric: A&O x 3 Dx/Plan (1) Ascites of liver Code(s): R18.8 - OTHER ASCITES Status: Acute (2) Anemia, normocytic normochromic Code(s): D64.9 - ANEMIA, UNSPECIFIED Status: Chronic (3) CKD (chronic kidney disease) stage 3, GFR 30-59 ml/min Code(s): N18.3 - CHRONIC KIDNEY DISEASE, STAGE 3 (MODERATE) Status: Chronic (4) Cirrhosis of liver Code(s): K74.60 - UNSPECIFIED CIRRHOSIS OF LIVER Status: Chronic (5) Hepatitis C Code(s): B19.20 - UNSPECIFIED VIRAL HEPATITIS C WITHOUT HEPATIC COMA Status: Chronic (6) Protein-calorie malnutrition, moderate Code(s): E44.0 - MODERATE PROTEIN-CALORIE MALNUTRITION Status: Chronic - Plan * s/p tap with 10 liters removed * albumin * d/c in am if doing good * out pt f/u with gi
[2017-09-12] MEDS: traMADol HCl 50 MG TAB PO PRN (00:51)
[2017-09-12 08:19] VITALS: BP 109/64; TEMP 97.7
[2017-09-12] MEDS: Propranolol HCl 20 MG TAB PO SCH (08:25)
[2017-09-12] MEDS: Spironolactone 25 MG TAB PO SCH (08:25)
[2017-09-12] MEDS: Famotidine 20 MG TAB PO SCH (08:25)
[2017-09-12] MEDS ORDERED: Furosemide 40 MG TAB PO SCH (09:00)
--- NOTE | 2017-09-12 09:40 | PDOC.PN ---
- Subjective Encounter Start Date: 09/12/17 Encounter Start Time: 09:39 Patient seen and examined. No new complaints. No overnight events - Objective MAR Reviewed: Yes Vital Signs & Weight: Vital Signs (12 hours) Temp Pulse Resp BP Pulse Ox 09/12/17 07:40 97.7 F 87 20 109/64 100 09/12/17 05:05 98.4 F 80 16 105/62 99 09/12/17 00:04 98.1 F 86 18 106/66 100 Weight Weight 138 lb 14.4 oz I&O: 09/11/17 09/12/17 09/13/17 06:59 06:59 06:59 Intake Total 240 1170 Output Total 300 29202 Balance -60 -29003 Result Diagrams: 09/11/17 04:17 09/11/17 04:17 Phys Exam - Physical Examination Constitutional: NAD HEENT: moist MMs Neck: no nodes Respiratory: no rales Cardiovascular: no significant murmur Gastrointestinal: no distention Musculoskeletal: pulses present Neurological: moves all 4 limbs Psychiatric: A&O x 3 Dx/Plan (1) Ascites of liver Code(s): R18.8 - OTHER ASCITES Status: Acute (2) Anemia, normocytic normochromic Code(s): D64.9 - ANEMIA, UNSPECIFIED Status: Chronic (3) CKD (chronic kidney disease) stage 3, GFR 30-59 ml/min Code(s): N18.3 - CHRONIC KIDNEY DISEASE, STAGE 3 (MODERATE) Status: Chronic (4) Cirrhosis of liver Code(s): K74.60 - UNSPECIFIED CIRRHOSIS OF LIVER Status: Chronic (5) Hepatitis C Code(s): B19.20 - UNSPECIFIED VIRAL HEPATITIS C WITHOUT HEPATIC COMA Status: Chronic (6) Protein-calorie malnutrition, moderate Code(s): E44.0 - MODERATE PROTEIN-CALORIE MALNUTRITION Status: Chronic - Plan * low salt diet * compliance with meds * out pt f/u with gi * d/c home
--- NOTE | 2017-09-12 14:25 | DIS ---
DATE OF ADMISSION: 09/10/2017 DATE OF DISCHARGE: 09/12/2017 DISCHARGE DIAGNOSES: Ascites status post tap, removed 10 liters. Patient feeling good. Chronic kid chery disease stage 3, stable. Metabolic acidosis, stable. Cirrhosis with hepatitis C, stable. Histo ry of anxiety, stable. DISCHARGE MEDICATIONS: Include all home medications. BRIEF HOSPITAL COURSE: A 52-year-old pleasant gentleman came into the hospital with abdominal disten tion. He was evaluated, distention was secondary to ascites. He was sent for ultrasound-guided para centesis, they removed 10 liters. Patient got 50 grams of albumin IV. Right now, he is walking in t he halls, doing well. He is right now medically stable to be discharged, to be followed by PCP and Lyn Zaldivar. He is asked to be compliant with low salt diet and compliant with his medications. He understand s all this. He is asked to come back to the emergency room in case symptoms recur. Total time for this discharge took 35 minutes.
== END 2017-09-12 12:54 | disposition home or self-care (01) ==
LOC: ERS 17:04 → 2SW 21:44
PROVIDERS: ADMIT Internal Medicine; ATTEND Internal Medicine
PROC: 0W9G3ZX Drainage of Peritoneal Cavity, Percutaneous Approach, Diagnostic (ICD-10-PCS; principal; 2017-09-12)
PROC: BW40ZZZ Ultrasonography of Abdomen (ICD-10-PCS; 2017-09-12)
DX: K74.60 Unspecified cirrhosis of liver (principal); R18.8 Other ascites; B19.20 Unspecified viral hepatitis C without hepatic coma; F41.9 Anxiety disorder, unspecified; E87.2 Acidosis; N18.3 Chronic kidney disease, stage 3 (moderate); E87.1 Hypo-osmolality and hyponatremia; F17.200 Nicotine dependence, unspecified, uncomplicated; Z98.890 Other specified postprocedural states
CPT/HCPCS: 36415; 49083; 80048; 80053; 82140; 83690; 85025; 96374; 96375; G0378; J2270; J2405; P9047

== ENCOUNTER 2018-10-02 13:25 | Emergency (ER) | payer MEDICAID, OTHER ==
[2018-10-02 13:55] LABS: #Eosinphils 0.5 thou/uL (0.0-0.7); #Monocytes 0.5 thou/uL (0.11-0.59); %Basophils 0.4 % (0.0-1.0); %Eosinophils 8.1 % (0.0-10.0); %Monocytes 7.4 % (0.0-10.0); %Neutrophils 67.1 % (42.0-75.0); Hemoglobin 9.4 g/dL (14.0-18.0); Mean Corpuscular HGB CONC 32.4 g/dL (32.0-36.0); Mean Corpuscular Hemoglobin 27.2 pg (27.0-31.0); Mean Platelet Volume 9.4 fL (7.4-10.4); Platelet Count 165 thou/uL (130-400); Red Blood Cell (RBC) Count 3.45 mill/uL (4.70-6.10)
[2018-10-02 14:12] LABS: ALT (SGPT) 90 U/L (8-55); AST (SGOT) 151 U/L (5-34); Albumin 2.9 g/dL (3.5-5.0); Alkaline Phosphatase 274 U/L (40-150); Anion Gap 11 mmol/L (10-20); BUN (Urea Nitrogen) 22 mg/dL (8.4-25.7); Bilirubin, Total 0.7 mg/dL (0.2-1.2); CK (CPK) 126 U/L (30-200); Calc. Creatinine Clearance 0 mL/min (70-130); Carbon Dioxide 19 mmol/L (22-29); Chloride 108 mmol/L (98-107); Estimated GFR-MDRD 74; Globulin 4.6 g/dL (2.4-3.5); Glucose 89 mg/dL (70-105); Potassium 3.9 mmol/L (3.5-5.1); Protein, Total 7.5 g/dL (6.0-8.3); Sodium 134 mmol/L (136-145)
[2018-10-02] MEDS ORDERED: Fentanyl 100 MCG/2 ML VIAL ONE (14:44)
[2018-10-02] MEDS ORDERED: Lidocaine 1% (PF) 30 ML VIAL ONE (14:44)
--- NOTE | 2018-10-02 14:51 | RAD ---
PORTABLE CHEST 1 VIEW: Date: 10/02/18 Time: 1355 hours HISTORY: Dyspnea. FINDINGS: Comparison made with exam of 08/06/17. The heart size is normal. There is elevation of the right hemidiaphragm. No focal areas of consolidat ion, pneumothorax, or pleural effusions are seen. IMPRESSION: No acute process. POS: [facility]
[2018-10-02] MEDS ORDERED: Albumin 25% 25 GM/100 ML BOT IVPB SCH ×3 (16:30→20:30)
[2018-10-02] MEDS ORDERED: diphenhydrAMINE 25 MG CAP ONE (17:18)
[2018-10-02 17:29] LABS: BF Color Yellow; Body Fluid Source Ascites Body Fluid; Clarity Clear (Clear); RBC Background Count 0.001; Tube # 1
[2018-10-02 17:42] LABS: BF RBC Count - Manual 96 /cumm; BF WBC/Nonhematics Ct. - Manua 54 /cumm
[2018-10-02 18:00] LABS: BF Segmented Neutrophils 6 %; Cell Count Non Hematic 59 %; Lymphocytes 35 %
== END 2018-10-02 20:46 ==
LOC: ERS 13:25
DX: D64.9 Anemia, unspecified (principal); R79.89 Other specified abnormal findings of blood chemistry; F41.9 Anxiety disorder, unspecified; R18.8 Other ascites; N18.3 Chronic kidney disease, stage 3 (moderate); I50.9 Heart failure, unspecified; F17.210 Nicotine dependence, cigarettes, uncomplicated; Z79.899 Other long term (current) drug therapy
CPT/HCPCS: 36415; 49082; 71045; 80053; 82140; 82550; 82945; 83615; 84157; 84484; 85025; 85060; 87070; 87205; 89051; 93005; 96365; 96366; 96375; 96376; J2001; J3010; P9047

== ENCOUNTER 2018-10-04 17:55 | Observation (INO) | payer MEDICAID, OTHER ==
[2018-10-04 18:21] LABS: #Basophils 0.1 thou/uL (0.0-0.2); #Eosinphils 0.4 thou/uL (0.0-0.7); #Lymphocytes 0.8 thou/uL (1.20-3.40); #Monocytes 0.4 thou/uL (0.11-0.59); #Neutrophils 3.1 thou/uL (1.40-6.50); %Basophils 1.1 % (0.0-1.0); %Eosinophils 8.2 % (0.0-10.0); %Lymphocytes 17.5 % (21.0-51.0); %Monocytes 8.1 % (0.0-10.0); Hemoglobin 10.2 g/dL (14.0-18.0); Mean Corpuscular Hemoglobin 27.1 pg (27.0-31.0); Mean Corpuscular Volume 84.8 fL (78.0-98.0); Mean Platelet Volume 9.3 fL (7.4-10.4); Platelet Count 150 thou/uL (130-400); RBC Distribution Width 16.9 % (11.5-14.5); Red Blood Cell (RBC) Count 3.77 mill/uL (4.70-6.10); White Blood Cell (WBC) Count 4.8 thou/uL (4.8-10.8)
[2018-10-04 18:29] LABS: INR-International Normal Ratio 1.3; Prothrombin Time 16.2 SEC (12.0-14.7)
[2018-10-04 18:38] LABS: ALT (SGPT) 124 U/L (8-55); AST (SGOT) 245 U/L (5-34); Alkaline Phosphatase 244 U/L (40-150); Anion Gap 11 mmol/L (10-20); BUN (Urea Nitrogen) 22 mg/dL (8.4-25.7); Bilirubin, Total 0.7 mg/dL (0.2-1.2); Calc. Creatinine Clearance 0 mL/min (70-130); Carbon Dioxide 19 mmol/L (22-29); Chloride 107 mmol/L (98-107); Estimated GFR-MDRD 69; Globulin 4.1 g/dL (2.4-3.5); Glucose 98 mg/dL (70-105); Potassium 3.8 mmol/L (3.5-5.1); Protein, Total 7.1 g/dL (6.0-8.3); Sodium 133 mmol/L (136-145)
[2018-10-04] MEDS ORDERED: Fentanyl 100 MCG/2 ML VIAL ONE (18:38)
--- NOTE | 2018-10-04 18:59 | RAD ---
SINGLE VIEW OF THE CHEST: Comparison: 10-02-18 History: Dyspnea. Cirrhosis. Stage III chronic kidney disease. FINDINGS: Single view of the chest shows a normal sized cardiomediastinal silhouette. There is no evidence of c onsolidation, mass, or pleural effusion. The bones are unremarkable. IMPRESSION: No evidence of acute cardiopulmonary disease. POS: [facility]
[2018-10-04] MEDS ORDERED: Ondansetron PF 4 MG/2 ML Vial ONE (19:24)
[2018-10-04] MEDS ORDERED: Morphine 4 MG/ML VIAL ONE (19:24)
--- NOTE | 2018-10-04 19:59 | CT ---
CT ABDOMEN AND PELVIS WITH CONTRAST: Comparison: 08-15-17 History: Abdominal distention and abdominal pain. Recent ascites status post drainage. Cirrhosis. Technique: Multiple contiguous axial images were obtained in a CT of the abdomen and pelvis with cont rast. Coronal reformats were performed. FINDINGS: The liver is cirrhotic in appearance. The spleen is enlarged measuring 13.1 cm in length. There is a large amount of ascites. Gallstones are seen in the gallbladder. The right kidney, adrenal glands, and pancreas are unremarkable. There is a stable nonobstructing 1-2 mm calcification in the lower pole of the left kidney. Fluid is seen within the patient's umbilical hernia. There is also fluid in the right scrotum secondary to a small right inguinal hernia. The large and small bowel are unremarkable. The appendix is normal. No abdominal or pelvic lymphadeno ritika is seen. Degenerative changes are seen in the spine. The visualized inferior thorax is unremarkable. There are remote healed bilateral rib fractures. IMPRESSION: 1. Large ascites. 2. Right inguinal and umbilical hernias. 3. Splenomegaly. 4. Cholelithiasis. 5. Nonobstructing left renal calcification. POS: [facility]
--- NOTE | 2018-10-04 21:17 | ULT ---
RIGHT UPPER QUADRANT ULTRASOUND: History: Abdominal distention. Right upper quadrant pain with nausea and vomiting. Technique: Multiplanar grayscale and color doppler images were obtained in a right upper quadrant abd ominal ultrasound. FINDINGS: The liver has a nodular contour consistent with cirrhosis. There is a large amount of ascites. There are no focal liver lesions or intrahepatic ductal dilatation. There is shadowing gallstones in the neck of the gallbladder. There is no gallbladder wall thickening . The common duct is normal measuring 5 mm. The pancreas cannot be seen due to bowel gas. The right kidney is normal in echogencity with no hydro nephrosis or calculus and measures 9.3 cm in length. IMPRESSION: 1. Cholelithiasis. 2. Cirrhosis with large ascites. POS: [facility]
[2018-10-04] MEDS ORDERED: Ondansetron ODT 4 MG TAB PO PRN (21:40)
[2018-10-04 21:41] VITALS: BMI 24.6
[2018-10-04 22:11] LABS: Lactic Acid 1.5 mmol/L (0.5-2.2)
[2018-10-04] MEDS ORDERED: Propranolol HCl 20 MG TAB PO SCH (22:30)
[2018-10-04] MEDS ORDERED: Morphine 4 MG/ML VIAL SLOW IVP SCH (22:45)
[2018-10-04] MEDS ORDERED: Morphine 4 MG/ML VIAL SLOW IVP PRN (23:00)
--- NOTE | 2018-10-04 23:32 | PDOC.FPRHP ---
- History of Present Illness Chief Complaint: Abdominal distension History of Present Illness: This is a 53 yo male with a pmh of Hep C untreated, cirrhosis, esophageal varicies, CKD stage 3 who presents to the ED with a cc of abdominal distension. He states that his pain has been worsening since he had 9 liters drained on . He denies radiation of the pain but states it is diffuse in nature and a dull ache. He states that his umbilical and inguinal hernias have been bothering him since he started getting ascities. He reports that after having the fluid drained on the , he had improvement in his symptoms. He reports that he has not been taking his medications as directed because the [place] [facility] is not giving them to him. ED Course: Morphine 4mg, zofran, fentanyl 50mcg - Allergies/Adverse Reactions Allergies Allergy/AdvReac Type Severity Reaction Status Date / Time No Known Allergies Allergy Verified 10/04/18 21:48 - Home Medications Medication Instructions Recorded Confirmed Type Lactulose 45 ml PO TID 09/10/17 10/04/18 History Pantoprazole [Protonix] 40 mg PO DAILY 09/10/17 10/04/18 History Furosemide [Lasix] 40 mg PO DAILY #30 tab 09/12/17 10/04/18 Rx Propranolol HCl [Inderal] 10 mg PO BID #30 tab 09/12/17 10/04/18 Rx Spironolactone [Aldactone] 25 mg PO DAILY #30 tab 09/12/17 10/04/18 Rx - History PMHx: cirrhosis, inguinal and umbilical hernia, CKD 3, Hep c, esophageal varicies, CHF PSHx: Hernia repair FHx: Father of unknown liver problem, mother of unknown cancer Social: Denies current alcohol or drug use, continues to smoke, history of group home tattoos - Review of Systems General: reports: fatigue. denies: fever/chills, weight/appetite/sleep changes Eyes: denies: eye pain, vision changes ENT: denies: nasal congestion, rhinorrhea Respiratory: denies: cough, congestion, shortness of breath Cardiovascular: denies: chest pain, palpitation, edema Gastrointestinal: reports: nausea, abdominal pain. denies: vomiting, diarrhea, constipation Genitourinary: denies: dysuria Skin: reports: rashes (pt states he had impetigo on his feet and legs) Musculoskeletal: reports: pain (chest pain following a fall down stairs). denies: tenderness Neurological: reports: numbness (decreased feeling in his feet.). denies: syncope, seizure Psychological: denies: anxiety, depression - Vital signs BP: 166/96 HR: 71 RR: 18 Tmax: 98.4 Pox: 100% on ra Wt: 63 kg - Physical Exam Constitutional: NAD, awake, alert and oriented HEENT: normocephalic and atraumatic, PERRLA, MMM Neck: trachea midline, other (mild JVD) Chest: other (right upper chest tender to palpation) Heart: RRR, normal S1/S2, no murmurs/rubs/gallops Lungs: CTAB, no respiratory distress, good air movement, no wheezing Abdomen: other (Distended, taught, positive fluid wave, tenderness to palpation) Musculoskeletal: normal structure, normal tone Neurological: CN II-XII intact Skin: no jaundice, other (pt has diffuse raised rash on his legs and feet.) Heme/Lymphatic: no unusual bruising or bleeding Psychiatric: normal mood and affect, good judgment and insight FMR H&P: Results - Labs Result Diagrams: 10/04/18 18:10 10/04/18 18:10 Lab results: WBC 4.8 thou/uL (4.8-10.8) 10/04/18 18:10 Hgb 10.2 g/dL (14.0-18.0) L 10/04/18 18:10 Hct 31.9 % (42.0-52.0) L 10/04/18 18:10 MCV 84.8 fL (78.0-98.0) 10/04/18 18:10 Plt Count 150 thou/uL (130-400) 10/04/18 18:10 Neutrophils % 65.0 % (42.0-75.0) 10/04/18 18:10 Sodium 133 mmol/L (136-145) L 10/04/18 18:10 Potassium 3.8 mmol/L (3.5-5.1) 10/04/18 18:10 Chloride 107 mmol/L (98-107) 10/04/18 18:10 Carbon Dioxide 19 mmol/L (22-29) L 10/04/18 18:10 BUN 22 mg/dL (8.4-25.7) 10/04/18 18:10 Creatinine 1.12 mg/dL (0.7-1.3) 10/04/18 18:10 Glucose 98 mg/dL (70-105) 10/04/18 18:10 Lactic Acid 1.5 mmol/L (0.5-2.2) 10/04/18 21:40 Calcium 8.0 mg/dL (7.8-10.44) 10/04/18 18:10 Total Bilirubin 0.7 mg/dL (0.2-1.2) 10/04/18 18:10 AST 245 U/L (5-34) H 10/04/18 18:10 ALT 124 U/L (8-55) H 10/04/18 18:10 Alkaline Phosphatase 244 U/L (40-150) H 10/04/18 18:10 Serum Total Protein 7.1 g/dL (6.0-8.3) 10/04/18 18:10 Albumin 3.0 g/dL (3.5-5.0) L 10/04/18 18:10 - Radiology Interpretation US - abdomen Status: report reviewed by me (Cholelitiasis, cirrhosis with large ascites) CT scan - abdomen Status: report reviewed by me (large ascites, right inguinal and umbilical hernias, splenomegaly, cholelithiasis, nonobstrucing left renal calcification) Chest x-ray Status: report reviewed by me (no acute cardiopulmonary disease) FMR H&P: A/P - Problem List (1) Ascites of liver Current Visit: No Status: Acute Code(s): R18.8 - OTHER ASCITES (2) CKD (chronic kidney disease) stage 3, GFR 30-59 ml/min Current Visit: No Status: Chronic Code(s): N18.3 - CHRONIC KIDNEY DISEASE, STAGE 3 (MODERATE) (3) Cholelithiases Current Visit: No Status: Chronic Code(s): K80.20 - CALCULUS OF GALLBLADDER W/O CHOLECYSTITIS W/O OBSTRUCTION (4) Cirrhosis of liver Current Visit: No Status: Chronic Code(s): K74.60 - UNSPECIFIED CIRRHOSIS OF LIVER (5) Hepatitis C Current Visit: No Status: Chronic Code(s): B19.20 - UNSPECIFIED VIRAL HEPATITIS C WITHOUT HEPATIC COMA - Plan This is a 53 yo male with a PMH of cirrosis 2/2 hepatitis C, esophageal varicies , CKD 3, CHF Ascities 2/2 cirrhosis -Admit to obs -plan on therapeutic paracentesis in the morning -Continue home lactulose, lasix, protonix -Contact group home in the morning to ensure they are filling and dispensing his medications -Avoid hepatotoxic medications -Meld-Na score of 16 <2% 90 day mortality Hepatitis C -Outpt consult Esophageal varicies -Hgb stable, appears to be a stable processes at this point -Negative occult blood CKD stage 3 -monitor, appears at baseline CHF -No record of Echocardiogram here Code: DNAR confirmed by me, decisional at the time Prophylaxis: SCDs Family: officer at bedside Disposition: home in 1-2 days FMR H&P: Upper Level - Pertinent history 53M p/w abdominal distention and discomfort s/p large-volume paracentesis two days prior that resulted in 9L drained from abdomen. Known hx cirrhosis 2/2 to hepatitis C. C/o worsening abdominal pain since paracentesis with some nausea. Pain is diffuse and described as a dull ache. He denies any hematochezia, melena , or fever. He states the [place] [facility] not been giving him his medications and that this is the reason he is here again. - Pertinent findings AST/ALT: 245/124 ALP: 244 albumin: 3.0 bilirubin: 0.7 PT:16.2 INR: 1.3 Plt: 150 abd US: no focal liver lesions or intrahepatic ductal dilations CT abd/pelvis: no acute pathology; cholelithiasis; splenomegaly; ascites; inguinal and umbilical hernias - Plan Date/Time: 10/04/18 [id number] IFamilia, have evaluated this patient and agree with findings/plan as outlined by legal internship resident. Pertinent changes/additions are listed here. Ascites secondary to decompensated cirrhosis: patient with positive hepatitis C serologies in August 2017. He has a history of esophageal varices, but no prior episodes of hepatic encephalopathy. 9L removed via paracentesis on 10/02. Analysis of ascitic fluid from two days prior is unconcerning for SBP or secondary BP. Ascitic fluid cultures are negative to date, but still awaiting finalization. Unable to calculate SAAG. Does not appear to be refractory ascites yet given his likely noncompliance with low Na diet and his medication regimen. Consult IR in AM for another possible large-volume paracentesis. Patients BP could also tolerate more aggressive diuretic home regimen. Cirrhosis: serum bilirubin, PT, and albumin appear stable from labs drawn one year ago. MELD score of 10. Unknown when his last HCC screen was done so it would be appropriate to order AFP since it has likely been longer than 6 months since his last round of screening. Abdominal US shows no focal liver lesions or intrahepatic ductal dilations. No evidence of hepatorenal syndrome given creatinine is unchanged from 2 days ago despite large-volume paracentesis. Patient denies any episodes of encephalopathy, but has been on lactulose for some time. It is also unclear whether he has had upper endoscopy previously. He is on a nonselective beta-robbie. Consider screening for varices now or in the future. Transaminitis/elevated alkaline phosphatase: minor acute elevation from two days ago. Likely a function of chronic disease process. Albumin, PT, and bilirubin are stable. Abdominal US and CT abd/pelvis not concerning for biliary obstruction.
[2018-10-04] MEDS ORDERED: diphenhydrAMINE 25 MG CAP PO SCH ×2 (23:59)
[2018-10-05] MEDS ORDERED: traMADol HCl 50 MG TAB PO PRN (03:36)
[2018-10-05] MEDS: diphenhydrAMINE 25 MG CAP PO PRN ×2 (04:05→13:37)
[2018-10-05] MEDS ORDERED: diphenhydrAMINE 25 MG CAP PO SCH (06:00)
[2018-10-05] MEDS: Ketorolac Tromethamine 30 MG/ML VIAL IVP PRN ×2 (06:47→13:37)
[2018-10-05 07:11] LABS: ALT (SGPT) 111 U/L (8-55); AST (SGOT) 211 U/L (5-34); Albumin 2.6 g/dL (3.5-5.0); Alkaline Phosphatase 209 U/L (40-150); Anion Gap 12 mmol/L (10-20); BUN (Urea Nitrogen) 21 mg/dL (8.4-25.7); Bilirubin, Total 0.6 mg/dL (0.2-1.2); Calc. Creatinine Clearance 83 mL/min (70-130); Carbon Dioxide 16 mmol/L (22-29); Chloride 110 mmol/L (98-107); Estimated GFR-MDRD 72; Globulin 3.5 g/dL (2.4-3.5); Glucose 106 mg/dL (70-105); Protein, Total 6.1 g/dL (6.0-8.3); Sodium 134 mmol/L (136-145)
--- NOTE | 2018-10-05 08:17 | PDOC.FM ---
- Subjective Subjective: Pt reports continued abdominal and back discomfort. No new concerns or problems at this time. no fever/chills, no sob no cough - Objective MAR Reviewed: Yes Vital Signs & Weight: Vital Signs (12 hours) Temp Pulse Resp BP Pulse Ox 10/05/18 06:49 98.2 F 68 18 147/78 H 100 10/05/18 03:23 97.7 F 65 16 163/83 H 100 10/04/18 23:05 98.3 F 81 16 159/84 H 98 10/04/18 21:44 98.5 F 77 18 164/97 H 99 Weight Weight 73.618 kg I&O: 10/04/18 10/05/18 10/06/18 06:59 06:59 06:59 Intake Total 881 Balance 881 Result Diagrams: 10/05/18 06:32 10/05/18 06:32 Phys Exam - Physical Examination Constitutional: NAD HEENT: PERRLA, moist MMs Neck: supple, full ROM Respiratory: no wheezing, clear to auscultation bilateral Cardiovascular: RRR, no significant murmur distended, positive fluid wave Musculoskeletal: no edema, pulses present Neurological: normal sensation, moves all 4 limbs Psychiatric: normal affect, A&O x 3 Skin: normal turgor Deviation from normal: bilateral petechial rash on LEs Dx/Plan (1) Ascites of liver Code(s): R18.8 - OTHER ASCITES Status: Acute (2) CKD (chronic kidney disease) stage 3, GFR 30-59 ml/min Code(s): N18.3 - CHRONIC KIDNEY DISEASE, STAGE 3 (MODERATE) Status: Chronic (3) Cirrhosis of liver Code(s): K74.60 - UNSPECIFIED CIRRHOSIS OF LIVER Status: Chronic (4) Hepatitis C Code(s): B19.20 - UNSPECIFIED VIRAL HEPATITIS C WITHOUT HEPATIC COMA Status: Chronic - Plan Plan: This is a 53 yo male with a PMH of cirrosis 2/2 hepatitis C, esophageal varicies , CKD 3, CHF Ascities 2/2 decompensated cirrhosis A- positive hepatitis C serologies in August 2017. Pt had 9L drained via paracentesis on 10/02 (studies unconcerning for SBP, cultures pending). Pt reports previously not needing paracentesis at this frequency but that he has also been non compliant with diet and medications for the last several days due to being in residential. MELD score 10. No evidence of hepatorenal syndrome given creatinine is unchanged from 2 days ago despite large-volume paracentesis. Patient denies any episodes of encephalopathy, but has been on lactulose for some time. P- will consider therapeutic paracentesis this AM. -consider increasing home diuretic as tolerated. -Continue home lactulose, protonix Hepatitis C A- Pt sees GI in [place] where his home is but it is unknown when last HCC screening was done. Abdominal US shows no focal liver lesions or intrahepatic ductal dilations. P- will get AFP -f/u with GI in outpt setting or back in [place] Esophageal varicies A-Hgb stable, appears to be a stable processes at this point. Negative occult blood P- monitor symptoms Transaminitis/elevated alkaline phosphatase - minor acute elevation from two days ago. Likely a function of chronic disease process. Albumin, PT, and bilirubin are stable. Abdominal US and CT abd/pelvis not concerning for biliary obstruction. CKD stage 3 -monitor, appears at baseline Cholelithiasis A- incidental finding on imaging. Pt pain not typical for cholecystitis P- monitor symptoms, plan for outpt mgmt CHF A-No record of Echocardiogram here, does not appear to be in exacerbation P- monitor symptoms Recent impetigo infection A- Pt has bilateral LE petechia on exam. Pt reports he was hospitalized in August for impetigo but was given ABX and has been doing well since though his rash remains. P- monitor symptoms/signs for infection Code: DNAR Prophylaxis: SCDs Addendum - Attending - Attending Attestation Date/Time: 10/05/18 [id number] I personally evaluated the patient and discussed the management with Dr. Hager I agree with the History, Examination, Assessment and Plan documented above with any addition or exceptions noted below - Patient without complaints except for abdominal distension. Afebrile VSS. A/P: 1) Ascites secondary to cirrhosis from Hep C- plan for paracentesis today. Will give albumin post-procedure. Will increase aldactone to 100 mg and continue lasix. 2) CKD- stable.
[2018-10-05 08:29] LABS: Band 7 % (5-11); Eosinophils 12 % (0-10); Lymphocytes 29 % (21-51); Monocytes 3 % (0-10); Neutrophil 48 % (42-75)
[2018-10-05 08:45] LABS: Hemoglobin 9.1 g/dL (14.0-18.0); MDiff Complete? YES; Mean Corpuscular Hemoglobin 27.9 pg (27.0-31.0); Mean Corpuscular Volume 84.4 fL (78.0-98.0); Mean Platelet Volume 9.4 fL (7.4-10.4); Platelet Count 133 thou/uL (130-400); RBC Distribution Width 17.1 % (11.5-14.5); Red Blood Cell (RBC) Count 3.26 mill/uL (4.70-6.10); White Blood Cell (WBC) Count 5.1 thou/uL (4.8-10.8)
[2018-10-05] MEDS ORDERED: Propranolol HCl 20 MG TAB PO SCH (09:00)
[2018-10-05] MEDS ORDERED: Furosemide 40 MG TAB PO SCH (09:00)
[2018-10-05] MEDS ORDERED: Spironolactone 25 MG TAB PO SCH (09:00)
[2018-10-05] MEDS ORDERED: Lidocaine 1% (PF) 30 ML VIAL ONE (11:52)
[2018-10-05] MEDS ORDERED: Albumin 25% 25 GM/100 ML BOT IVPB SCH ×2 (12:45→13:45)
--- NOTE | 2018-10-05 12:49 | PDOC.EVN ---
Event Note - Event Note Event Note: INDICATION: therapeutic PROCEDURE FIXED INCOME PORTFOLIO MANAGER: Alejandro Hager MD ATTENDING PHYSICIAN: Dr. Hagen, In Attendance (Y/N) Y Ultrasound used to bola location: Y CONSENT: Obtained and in chart Consent was obtained from Mr. Middleton prior to the procedure. Indications, risks, and benefits were explained at length. PROCEDURE SUMMARY: A time-out was performed. Personal protective equipment was used and sterile technique was observed throughout the procedure. The area was cleansed and draped in usual sterile fashion using chlorhexidine scrub. Anesthesia was achieved with 1% lidocaine. The RLQ of the abdomen was prepped and draped in a sterile fashion using chlorhexidine scrub. 1% lidocaine was used to numb the skin, soft tissue and peritoneum. The paracentesis catheter was inserted and advanced with negative pressure until Clear yellow colored fluid was aspirated. The catheter was then connected to the vacutainer and 8.5 liters of additional ascitic fluid were drained. The catheter was removed and no leaking was noted. Sterile gauze was taped over the puncture wound. The patient tolerated the procedure well without any immediate complications. Estimated blood loss was 2ml. I was present, assisted and supervised the paracentesis with Dr. Hager and Dr. Pugh. No complicatiosn noted. 8.5 L fluid removed.
[2018-10-05 19:28] VITALS: BP 111/71; TEMP 98.6
--- NOTE | 2018-10-05 20:29 | PDOC.EVN ---
Event Note - Event Note Event Note: Paged to room at time of discharge. Nurse reports pt had intentional fall when trying to stand up. She reports that she guided him down and that he gently hit his head and arm with fall. Guard also acknowledges intentional fall. Pt reports he has been feeling dizzy. Neuro exam done at bedside CNII-XII grossly intact. Strength equal in all 4 extremities. No step off lesions on cervical vertebrae, scalp contusions, or crepitus in skull or neck. Pt informed he could take ibuprofen in long term. No need for Head or neck CT.
--- NOTE | 2018-10-05 22:33 | DIS ---
DATE OF ADMISSION: 10/04/2018 DATE OF DISCHARGE: 10/05/2018 RESIDENT: Alejandro Hager MD. DISCHARGE ATTENDING: Dr. Brenda Hagen. CONSULTS: None. PROCEDURES: 1. On 10/04/2018, chest x-ray, impression; no evidence of acute cardiopulmonary disease. 2. On 10/04/2018, abdomen and pelvis CT, impression; large ascites, right inguinal and umbilical hernias, splenomegaly, cholelithiasis, nonobstructing left renal calcification. 3. On 10/04/2018, abdominal ultrasound, impression; cholelithiasis, cirrhosis with large ascites. 4. On 10/05/2018, paracentesis, therapeutic, 8.5 L drained. PRIMARY DIAGNOSES: Ascites secondary to decompensated cirrhosis secondary to hepatitis C. SECONDARY DIAGNOSES: 1. Hepatitis C infection, chronic. 2. Chronic kidney disease. 3. Congestive heart failure. DISCHARGE MEDICATIONS: 1. Diphenhydramine 25 mg p.o. q.6 hours. 2. Lasix 40 mg p.o. daily. 3. Lactulose 45 mL p.o. t.i.d. 10 g per 15 mL solution. 4. Zofran 4 mg. 5. Protonix 40 mg p.o. daily. 6. Propranolol 10 mg p.o. b.i.d. 7. Spironolactone 100 mg p.o. daily. Discontinued medications; 1. Spironolactone 25 mg p.o. daily. HISTORY OF PRESENT ILLNESS/HOSPITAL COURSE: This is a 53-year-old male with past medical history of chronic hep C infection, who presented with abdominal distention two days after being drained 9.5 L in the ER. The patient was found to have elevated transaminases and was elevated for ascites and decompensation of liver failure. The next morning, laboratory values were more normalized and had returned to closer to the baseline levels from two days previous. The patient still complained of abdominal discomfort and so, a therapeutic paracentesis was performed draining 8.5 L of ascitic fluid, which was clear and yellow. The patient tolerated procedure well and was given 50 mg of albumin after the procedure and discharged back to longterm. Of note, on workup, incidental finding of cholelithiasis was found; however, the patient was not complaining of right upper quadrant pain and denied such pain while saying that his pain was more generalized and more discomfort and pressure. DISPOSITION: Stable. DISCHARGE INSTRUCTIONS: Location, home. Diet, low salt. Activity as tolerated. Follow up with primary care physician in seven days. Job ID: [id number]
[2018-10-06] MEDS ORDERED: Spironolactone 25 MG TAB PO SCH (08:00)
--- NOTE | 2018-10-08 15:19 | EKG ---
Test Reason : Blood Pressure : / mmHG Vent. Rate : 072 BPM Atrial Rate : 072 BPM P-R Int : 112 ms QRS Dur : 070 ms QT Int : 434 ms P-R-T Axes : 036 -06 036 degrees QTc Int : 475 ms Normal sinus rhythm Normal ECG Confirmed by MELLY FLANAGAN M.D. ([id number]), assignment editor MARY RICHARDS ([id number]) on 10/08/2018 3:18:50 PM Referred By: Confirmed By:MELLY FLANAGAN M.D.
== END 2018-10-05 20:19 ==
LOC: ERS 17:55 → 2SW 20:34
PROVIDERS: ADMIT Family Medicine; ATTEND Family Medicine
PROC: 0W9G3ZZ Drainage of Peritoneal Cavity, Percutaneous Approach (ICD-10-PCS; principal; 2018-10-05)
DX: B18.2 Chronic viral hepatitis C (principal); K74.60 Unspecified cirrhosis of liver; R18.8 Other ascites; I85.10 Secondary esophageal varices without bleeding; N18.3 Chronic kidney disease, stage 3 (moderate); I50.9 Heart failure, unspecified; F17.210 Nicotine dependence, cigarettes, uncomplicated; K80.20 Calculus of gallbladder without cholecystitis without obstruction; Z66 Do not resuscitate; Z79.899 Other long term (current) drug therapy; Z98.890 Other specified postprocedural states
CPT/HCPCS: 36415; 49082; 71045; 74177; 76705; 80053; 82105; 82274; 83605; 84484; 85007; 85025; 85027; 85610; 93005; 96365; 96366; 96374; 96375; 96376; G0378; J1885; J2001; J2270; J2405; J3010; P9047

== ENCOUNTER 2018-10-09 | Emergency (ER) | payer MEDICAID, OTHER ==
[2018-10-09 01:01] LABS: #Basophils 0.1 thou/uL (0.0-0.2); #Eosinphils 0.5 thou/uL (0.0-0.7); #Lymphocytes 1.1 thou/uL (1.20-3.40); #Monocytes 0.7 thou/uL (0.11-0.59); #Neutrophils 3.8 thou/uL (1.40-6.50); %Basophils 1.3 % (0.0-1.0); %Eosinophils 8.4 % (0.0-10.0); %Lymphocytes 18.3 % (21.0-51.0); %Neutrophils 61.1 % (42.0-75.0); Hemoglobin 10.5 g/dL (14.0-18.0); Mean Corpuscular HGB CONC 33.2 g/dL (32.0-36.0); Mean Corpuscular Hemoglobin 28.2 pg (27.0-31.0); Mean Corpuscular Volume 85.1 fL (78.0-98.0); Mean Platelet Volume 9.9 fL (7.4-10.4); Platelet Count 152 thou/uL (130-400); RBC Distribution Width 17.1 % (11.5-14.5); Red Blood Cell (RBC) Count 3.74 mill/uL (4.70-6.10); White Blood Cell (WBC) Count 6.2 thou/uL (4.8-10.8)
[2018-10-09 01:09] LABS: INR-International Normal Ratio 1.2; PTT 33.1 SEC (22.9-36.1); Prothrombin Time 15.5 SEC (12.0-14.7)
[2018-10-09 01:22] LABS: ALT (SGPT) 149 U/L (8-55); AST (SGOT) 276 U/L (5-34); Albumin 2.9 g/dL (3.5-5.0); Alkaline Phosphatase 255 U/L (40-150); Anion Gap 13 mmol/L (10-20); BUN (Urea Nitrogen) 27 mg/dL (8.4-25.7); Bilirubin, Total 0.6 mg/dL (0.2-1.2); Calc. Creatinine Clearance 0 mL/min (70-130); Calcium 8.3 mg/dL (7.8-10.44); Carbon Dioxide 18 mmol/L (22-29); Chloride 112 mmol/L (98-107); Estimated GFR-MDRD 57; Glucose 84 mg/dL (70-105); Potassium 4.3 mmol/L (3.5-5.1); Protein, Total 6.9 g/dL (6.0-8.3); Sodium 139 mmol/L (136-145)
[2018-10-09] MEDS ORDERED: Lidocaine 1% w/Epinephrine 1:100K 20 ML VIAL ONE (01:37)
[2018-10-09] MEDS ORDERED: Fentanyl 100 MCG/2 ML VIAL ONE (01:37)
[2018-10-09] MEDS ORDERED: traMADol HCl 50 MG TAB ONE (03:53)
== END 2018-10-09 03:57 ==
LOC: ERS
DX: K74.60 Unspecified cirrhosis of liver (principal); I50.9 Heart failure, unspecified; N18.3 Chronic kidney disease, stage 3 (moderate); F41.9 Anxiety disorder, unspecified; F17.210 Nicotine dependence, cigarettes, uncomplicated; Z79.899 Other long term (current) drug therapy
CPT/HCPCS: 49082; 80053; 85025; 85610; 85730; 96374; J2001; J3010

== ENCOUNTER 2018-10-13 16:28 | Emergency (ER) | payer MEDICAID, OTHER ==
[2018-10-13] MEDS ORDERED: Morphine 4 MG/ML VIAL ONE (17:41)
[2018-10-13 17:51] LABS: #Eosinphils 0.2 thou/uL (0.0-0.7); #Lymphocytes 1.2 thou/uL (1.20-3.40); #Monocytes 0.7 thou/uL (0.11-0.59); #Neutrophils 4.4 thou/uL (1.40-6.50); %Basophils 0.5 % (0.0-1.0); %Eosinophils 3.3 % (0.0-10.0); %Lymphocytes 17.8 % (21.0-51.0); %Monocytes 11.1 % (0.0-10.0); %Neutrophils 67.2 % (42.0-75.0); Hemoglobin 10.4 g/dL (14.0-18.0); Mean Corpuscular HGB CONC 33.3 g/dL (32.0-36.0); Mean Corpuscular Hemoglobin 28.1 pg (27.0-31.0); Mean Corpuscular Volume 84.3 fL (78.0-98.0); Mean Platelet Volume 9.9 fL (7.4-10.4); Platelet Count 146 thou/uL (130-400); RBC Distribution Width 17.2 % (11.5-14.5); Red Blood Cell (RBC) Count 3.69 mill/uL (4.70-6.10); White Blood Cell (WBC) Count 6.6 thou/uL (4.8-10.8)
[2018-10-13 17:58] LABS: INR-International Normal Ratio 1.3; PTT 31.9 SEC (22.9-36.1); Prothrombin Time 16.3 SEC (12.0-14.7)
[2018-10-13 18:11] LABS: ALT (SGPT) 191 U/L (8-55); AST (SGOT) 325 U/L (5-34); Albumin 2.6 g/dL (3.5-5.0); Alkaline Phosphatase 252 U/L (40-150); Anion Gap 13 mmol/L (10-20); BUN (Urea Nitrogen) 26 mg/dL (8.4-25.7); Bilirubin, Total 0.9 mg/dL (0.2-1.2); Calc. Creatinine Clearance 0 mL/min (70-130); Calcium 7.9 mg/dL (7.8-10.44); Carbon Dioxide 18 mmol/L (22-29); Chloride 105 mmol/L (98-107); Estimated GFR-MDRD 63; Globulin 3.9 g/dL (2.4-3.5); Glucose 90 mg/dL (70-105); Lipase 242 U/L (8-78); Potassium 4.2 mmol/L (3.5-5.1); Protein, Total 6.5 g/dL (6.0-8.3); Sodium 132 mmol/L (136-145)
== END 2018-10-13 19:27 ==
LOC: ERS 16:28
DX: R18.8 Other ascites (principal); K72.10 Chronic hepatic failure without coma; N18.3 Chronic kidney disease, stage 3 (moderate); I50.9 Heart failure, unspecified; F17.210 Nicotine dependence, cigarettes, uncomplicated; Z79.899 Other long term (current) drug therapy
CPT/HCPCS: 36415; 80053; 83690; 85025; 85610; 85730; 96374; J2270

== ENCOUNTER 2018-10-17 22:34 | Emergency (ER) | payer MEDICAID, OTHER ==
--- NOTE | 2018-10-17 23:42 | RAD ---
FRONTAL VIEW CHEST: INDICATIONS: Chest pain. COMPARISON: 10/04/2018 FINDINGS: There are nodular densities bilaterally, one of which is located at the lateral right mid lung and th e additional is located within the central mid left chest. The cardiac silhouette is normal in size. There is interstitial prominence of each lung. IMPRESSION: Bilateral nodular densities of the chest. Underlying parenchymal nodularity, particularly regarding the density of the lateral right mid chest, may relate to underlying neoplasm. Therefore, recommend followup with contrast enhanced CT thorax for further assessment. POS: [facility]
[2018-10-17 23:43] LABS: #Eosinphils 0.3 thou/uL (0.0-0.7); #Lymphocytes 1.5 thou/uL (1.20-3.40); #Neutrophils 4.8 thou/uL (1.40-6.50); %Basophils 0.4 % (0.0-1.0); %Eosinophils 4.1 % (0.0-10.0); %Lymphocytes 19.9 % (21.0-51.0); %Monocytes 12.5 % (0.0-10.0); %Neutrophils 63.1 % (42.0-75.0); Hemoglobin 10.1 g/dL (14.0-18.0); Mean Corpuscular HGB CONC 34.2 g/dL (32.0-36.0); Mean Corpuscular Hemoglobin 28.7 pg (27.0-31.0); Mean Corpuscular Volume 83.9 fL (78.0-98.0); Platelet Count 192 thou/uL (130-400); Red Blood Cell (RBC) Count 3.53 mill/uL (4.70-6.10); White Blood Cell (WBC) Count 7.7 thou/uL (4.8-10.8)
[2018-10-17 23:54] LABS: INR-International Normal Ratio 1.4; PTT 32.1 SEC (22.9-36.1); Prothrombin Time 16.7 SEC (12.0-14.7)
[2018-10-18 00:02] LABS: ALT (SGPT) 173 U/L (8-55); AST (SGOT) 255 U/L (5-34); Albumin 2.6 g/dL (3.5-5.0); Alkaline Phosphatase 278 U/L (40-150); Anion Gap 11 mmol/L (10-20); BUN (Urea Nitrogen) 29 mg/dL (8.4-25.7); Bilirubin, Total 0.6 mg/dL (0.2-1.2); Calc. Creatinine Clearance 0 mL/min (70-130); Carbon Dioxide 18 mmol/L (22-29); Chloride 109 mmol/L (98-107); Estimated GFR-MDRD 45; Globulin 4.1 g/dL (2.4-3.5); Glucose 105 mg/dL (70-105); Potassium 4.1 mmol/L (3.5-5.1); Protein, Total 6.7 g/dL (6.0-8.3); Sodium 134 mmol/L (136-145)
[2018-10-18] MEDS ORDERED: Fentanyl 100 MCG/2 ML VIAL ONE ×2 (00:25→02:43)
[2018-10-18] MEDS ORDERED: Albumin 25% 25 GM/100 ML BOT IVPB ONE (00:45)
[2018-10-18 04:29] LABS: Fluid, Protein 1.2 g/dL (Not Available)
[2018-10-18 05:52] LABS: BF Color Yellow; Body Fluid Source PERITONEAL FLUID; Tube # 1
[2018-10-18 06:04] LABS: RBC Background Count 0.003; WBC Background Count 0.01
[2018-10-18 06:05] LABS: BF RBC Count - Manual 206 /cumm; BF WBC/Nonhematics Ct. - Manua 13 /cumm
[2018-10-18 06:57] LABS: BF Segmented Neutrophils 3 %; Cell Count Non Hematic 50 %; Eosinophils 1 %; Lymphocytes 46 %
[2018-10-18 11:51] LABS: Clarity Hazy (Clear)
== END 2018-10-18 03:40 ==
LOC: ERS 22:34
DX: R18.8 Other ascites (principal); K74.60 Unspecified cirrhosis of liver; N18.3 Chronic kidney disease, stage 3 (moderate); I50.9 Heart failure, unspecified; F17.210 Nicotine dependence, cigarettes, uncomplicated; Z79.899 Other long term (current) drug therapy
CPT/HCPCS: 36415; 49083; 71045; 80053; 82140; 82945; 84157; 84484; 85025; 85060; 85610; 85730; 89051; 93005; 96374; 96376; J3010; P9047

== ENCOUNTER 2018-10-21 20:44 | Emergency (ER) | payer MEDICAID | END 2018-10-21 21:12 | disposition short-term general hospital (02) | LOC: SCSER 20:44 → ERS 21:12 | DX: R18.8 Other ascites (principal) | CPT/HCPCS: 99284 ==

== ENCOUNTER 2018-10-21 21:30 | Emergency (ER) | payer MEDICAID, OTHER ==
[2018-10-21] MEDS ORDERED: Morphine 4 MG/ML VIAL ONE (22:40)
== END 2018-10-21 23:50 ==
LOC: EEVIPCON 21:30 → ERS 21:30
DX: R18.8 Other ascites (principal); R06.02 Shortness of breath; I12.9 Hypertensive chronic kidney disease with stage 1 through stage 4 chronic kidney disease, or unspecified chronic kidney disease; N18.3 Chronic kidney disease, stage 3 (moderate); K74.60 Unspecified cirrhosis of liver; Z87.891 Personal history of nicotine dependence; Z79.899 Other long term (current) drug therapy
CPT/HCPCS: 49083; 96372; J2270

== ENCOUNTER 2018-10-25 18:49 | Emergency (ER) | payer MEDICAID, SELFPAY ==
[2018-10-25 20:37] LABS: #Eosinphils 0.2 thou/uL (0.0-0.7); #Lymphocytes 1.3 thou/uL (1.20-3.40); #Monocytes 1.2 thou/uL (0.11-0.59); %Eosinophils 2.5 % (0.0-10.0); %Lymphocytes 15.1 % (21.0-51.0); %Neutrophils 68.4 % (42.0-75.0); Hemoglobin 10.3 g/dL (14.0-18.0); Mean Corpuscular HGB CONC 32.1 g/dL (32.0-36.0); Mean Corpuscular Hemoglobin 27.3 pg (27.0-31.0); Mean Corpuscular Volume 85.3 fL (78.0-98.0); Mean Platelet Volume 9.4 fL (7.4-10.4); Platelet Count 178 thou/uL (130-400); RBC Distribution Width 16.4 % (11.5-14.5); Red Blood Cell (RBC) Count 3.77 mill/uL (4.70-6.10); White Blood Cell (WBC) Count 8.8 thou/uL (4.8-10.8)
--- NOTE | 2018-10-25 21:06 | RAD ---
CHEST TWO VIEWS: HISTORY: Chest pain. COMPARISON: 10/17/2018 FINDINGS: The cardiac silhouette and pulmonary vasculature are unremarkable. The mediastinum is midline. No l obar consolidation, pneumothorax, or pleural fluid. Old bilateral rib fractures are similar in appea yonis to the prior study. IMPRESSION: No active cardiopulmonary abnormalities are demonstrated. POS: [facility]
[2018-10-25 21:07] LABS: ALT (SGPT) 197 U/L (8-55); AST (SGOT) 313 U/L (5-34); Albumin 2.4 g/dL (3.5-5.0); Alkaline Phosphatase 254 U/L (40-150); Anion Gap 15 mmol/L (10-20); BUN (Urea Nitrogen) 39 mg/dL (8.4-25.7); Bilirubin, Total 0.7 mg/dL (0.2-1.2); Calc. Creatinine Clearance 0 mL/min (70-130); Calcium 7.8 mg/dL (7.8-10.44); Carbon Dioxide 15 mmol/L (22-29); Chloride 106 mmol/L (98-107); Estimated GFR-MDRD 45; Globulin 4.1 g/dL (2.4-3.5); Glucose 94 mg/dL (70-105); Lipase 299 U/L (8-78); Potassium 3.4 mmol/L (3.5-5.1); Protein, Total 6.5 g/dL (6.0-8.3); Sodium 133 mmol/L (136-145)
[2018-10-25] MEDS ORDERED: Ibuprofen 800 MG TAB ONE (21:47)
== END 2018-10-25 21:50 | disposition home or self-care (01) ==
LOC: ERS 18:49
DX: S20.212A Contusion of left front wall of thorax, initial encounter (principal); K72.90 Hepatic failure, unspecified without coma; I13.0 Hypertensive heart and chronic kidney disease with heart failure and stage 1 through stage 4 chronic kidney disease, or unspecified chronic kidney disease; I50.9 Heart failure, unspecified; N18.3 Chronic kidney disease, stage 3 (moderate); Z87.891 Personal history of nicotine dependence; W01.198A Fall on same level from slipping, tripping and stumbling with subsequent striking against other object, initial encounter
CPT/HCPCS: 36415; 71046; 80053; 83690; 85025; 93005

== ENCOUNTER 2018-10-26 11:26 | Emergency (ER) | payer MEDICAID ==
[2018-10-26] MEDS ORDERED: Lidocaine 1% (PF) 30 ML VIAL ONE (13:10)
[2018-10-26] MEDS ORDERED: Morphine 4 MG/ML VIAL ONE (13:10)
== END 2018-10-26 15:13 | disposition home or self-care (01) ==
LOC: ERS 11:26
DX: R18.8 Other ascites (principal); R14.0 Abdominal distension (gaseous); I11.0 Hypertensive heart disease with heart failure; I50.9 Heart failure, unspecified; Z87.891 Personal history of nicotine dependence; Z79.899 Other long term (current) drug therapy
CPT/HCPCS: 49083; 96372; J2001; J2270

== ENCOUNTER 2018-10-28 22:26 | Emergency (ER) | payer SELFPAY ==
[2018-10-28] MEDS ORDERED: Ketorolac Tromethamine 30 MG/ML VIAL ONE (22:47)
== END 2018-10-28 23:19 | disposition home or self-care (01) ==
LOC: ERS 22:26
DX: S20.212A Contusion of left front wall of thorax, initial encounter (principal); I11.0 Hypertensive heart disease with heart failure; I50.9 Heart failure, unspecified; Z87.891 Personal history of nicotine dependence; Z79.899 Other long term (current) drug therapy; W18.30XA Fall on same level, unspecified, initial encounter
CPT/HCPCS: 96372; J1885

== ENCOUNTER 2018-10-29 07:05 | Observation (INO) | payer SELFPAY ==
[2018-10-29 08:19] LABS: #Basophils 0.1 thou/uL (0.0-0.2); #Eosinphils 0.5 thou/uL (0.0-0.7); #Lymphocytes 1.5 thou/uL (1.20-3.40); #Monocytes 1.1 thou/uL (0.11-0.59); %Basophils 0.5 % (0.0-1.0); %Eosinophils 4.6 % (0.0-10.0); %Lymphocytes 14.7 % (21.0-51.0); %Monocytes 10.6 % (0.0-10.0); %Neutrophils 69.6 % (42.0-75.0); Hemoglobin 10.9 g/dL (14.0-18.0); Mean Corpuscular HGB CONC 31.6 g/dL (32.0-36.0); Mean Corpuscular Hemoglobin 26.8 pg (27.0-31.0); Mean Corpuscular Volume 84.9 fL (78.0-98.0); Mean Platelet Volume 9.5 fL (7.4-10.4); Platelet Count 220 thou/uL (130-400); RBC Distribution Width 16.3 % (11.5-14.5); Red Blood Cell (RBC) Count 4.07 mill/uL (4.70-6.10)
[2018-10-29 08:41] LABS: ALT (SGPT) 323 U/L (8-55); AST (SGOT) 632 U/L (5-34); Albumin 2.3 g/dL (3.5-5.0); Alkaline Phosphatase 279 U/L (40-150); Anion Gap 18 mmol/L (10-20); BUN (Urea Nitrogen) 55 mg/dL (8.4-25.7); Bilirubin, Total 0.8 mg/dL (0.2-1.2); Calc. Creatinine Clearance 0 mL/min (70-130); Calcium 7.8 mg/dL (7.8-10.44); Carbon Dioxide 12 mmol/L (22-29); Chloride 105 mmol/L (98-107); Estimated GFR-MDRD 30; Glucose 87 mg/dL (70-105); Potassium 3.7 mmol/L (3.5-5.1); Protein, Total 6.3 g/dL (6.0-8.3); Sodium 131 mmol/L (136-145)
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
[2018-10-29] MEDS ORDERED: Ondansetron ODT 4 MG TAB PO PRN (12:02)
[2018-10-29] MEDS ORDERED: Ondansetron PF 4 MG/2 ML Vial IVP PRN (12:02)
[2018-10-29 12:39] LABS: INR-International Normal Ratio 1.3; PTT 32.6 SEC (22.9-36.1); Prothrombin Time 16.1 SEC (12.0-14.7)
[2018-10-29 14:00] VITALS: BMI 21.7
--- NOTE | 2018-10-29 14:55 | RAD ---
TWO VIEW CHEST: COMPARISON: 10/25/2018. INDICATION: Chest pain. FINDINGS: There is mild callus formation with increased density involving several ribs bilaterally, indicating remote sequelae from prior trauma. Correlate clinically. No lobar consolidation, effusion, or pneumothorax. Cardiac silhouette is normal in size. IMPRESSION: 1. Redemonstration of multiple remote bilateral rib fractures. 2. No lobar consolidation. POS: [facility]
[2018-10-29] MEDS ORDERED: Heparin 5,000 UNITS/ML VIAL SC SCH (15:00)
[2018-10-29] MEDS: cefTRIAXone\\ROCEPHIN 1 GM in Sodium Chloride 0.9% 100 ML IVPB SCH (15:07)
[2018-10-29] MEDS ORDERED: Ibuprofen 600 MG TAB PO PRN (19:00)
--- NOTE | 2018-10-29 20:12 | PDOC.EVN ---
Event Note - Event Note Event Note: Paged by nurse as patient was refusing tylenol prn, requested fentanyl instead by name, and threatening to leave AMA. Dr. Sullivan and I spoke with patient at bedside. Patient has been very rude to staff. RADIOSONDE OPERATOR was checked by admitting team and noted to have many narcotics prescriptions from multiple states, concerning for abuse. UDS pending at this time. Patient agreed to try tylenol and wishes to see another group of doctors. Discussed case with attending, Dr. Donahue, who agreed with only tylenol use as patient with no acute medical condition requiring narcotics. Vital signs not indicative of severe pain and patient not appearing in pain at this time. Spoke with AIYANA, Dr. Sal. Plan to transfer care to [facility] in the morning. We will manage patient for any overnight needs until transfer of care. Discussed the risks of leaving AMA with patient including but not limited to development of acute renal failure requiring urgent/emergent dialysis, metabolic derangements which could affect various organ systems including the heart and kidneys, development of arrythmia, heart attack, and even .Recommend that if patient decides to leave AMA that he will need to follow up in clinic on Thursday for repeat laboratory work to monitor renal function. Also advise if patient changes his mind after leaving AMA he can return to ER for care. Patient expressed understanding of risks and all questions answered.
[2018-10-29] MEDS: Propranolol HCl 20 MG TAB PO SCH (21:06)
[2018-10-29] MEDS: Acetaminophen 325 MG TAB PO PRN (21:08)
[2018-10-30] MEDS: Acetaminophen 325 MG TAB PO PRN (05:08)
[2018-10-30 06:05] LABS: #Eosinphils 0.3 thou/uL (0.0-0.7); #Lymphocytes 1.1 thou/uL (1.20-3.40); #Monocytes 0.7 thou/uL (0.11-0.59); #Neutrophils 4.6 thou/uL (1.40-6.50); %Basophils 0.2 % (0.0-1.0); %Eosinophils 4.9 % (0.0-10.0); %Lymphocytes 15.6 % (21.0-51.0); %Monocytes 10.6 % (0.0-10.0); %Neutrophils 68.7 % (42.0-75.0); Hemoglobin 10.1 g/dL (14.0-18.0); Mean Corpuscular HGB CONC 32.6 g/dL (32.0-36.0); Mean Corpuscular Hemoglobin 28.3 pg (27.0-31.0); Mean Platelet Volume 9.2 fL (7.4-10.4); Platelet Count 195 thou/uL (130-400); RBC Distribution Width 15.8 % (11.5-14.5); Red Blood Cell (RBC) Count 3.57 mill/uL (4.70-6.10); White Blood Cell (WBC) Count 6.8 thou/uL (4.8-10.8)
[2018-10-30 06:31] LABS: ALT (SGPT) 413 U/L (8-55); AST (SGOT) 891 U/L (5-34); Alkaline Phosphatase 260 U/L (40-150); Anion Gap 14 mmol/L (10-20); BUN (Urea Nitrogen) 62 mg/dL (8.4-25.7); Bilirubin, Total 0.5 mg/dL (0.2-1.2); Calc. Creatinine Clearance 37 mL/min (70-130); Calcium 7.5 mg/dL (7.8-10.44); Carbon Dioxide 15 mmol/L (22-29); Chloride 107 mmol/L (98-107); Estimated GFR-MDRD 33; Globulin 3.6 g/dL (2.4-3.5); Glucose 100 mg/dL (70-105); Potassium 3.7 mmol/L (3.5-5.1); Protein, Total 5.6 g/dL (6.0-8.3); Sodium 132 mmol/L (136-145)
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
[2018-10-30] MEDS ORDERED: Sodium Chloride 0.9% 1,000 ML IV SCH (07:00)
[2018-10-30] MEDS ORDERED: Gabapentin 300 MG CAP PO SCH (09:00)
[2018-10-30] MEDS ORDERED: Enoxaparin Sodium 40 MG/0.4 ML SYRINGE SC SCH (09:00)
[2018-10-30] MEDS ORDERED: Furosemide 40 MG TAB PO SCH (09:00)
[2018-10-30] MEDS ORDERED: Spironolactone 100 MG TAB PO SCH (09:00)
[2018-10-30] MEDS ORDERED: Albumin 25% 25 GM/100 ML BOT IVPB ONE (09:00)
[2018-10-30] MEDS: Propranolol HCl 20 MG TAB PO SCH (10:27)
[2018-10-30 12:40] LABS: Anion Gap 14 mmol/L (10-20); BUN (Urea Nitrogen) 58 mg/dL (8.4-25.7); Calc. Creatinine Clearance 40 mL/min (70-130); Calcium 7.5 mg/dL (7.8-10.44); Carbon Dioxide 15 mmol/L (22-29); Chloride 110 mmol/L (98-107); Estimated GFR-MDRD 36; Glucose 79 mg/dL (70-105); Potassium 3.5 mmol/L (3.5-5.1); Sodium 135 mmol/L (136-145)
[2018-10-30] MEDS: cefTRIAXone\\ROCEPHIN 1 GM in Sodium Chloride 0.9% 100 ML IVPB SCH (13:22)
[2018-10-30 13:47] VITALS: BP 115/62; TEMP 97.9
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
--- NOTE | 2018-11-06 21:51 | EKG ---
Test Reason : Blood Pressure : / mmHG Vent. Rate : 064 BPM Atrial Rate : 064 BPM P-R Int : 160 ms QRS Dur : 078 ms QT Int : 530 ms P-R-T Axes : 030 -11 -11 degrees QTc Int : 546 ms Normal sinus rhythm Septal infarct , age undetermined Prolonged QT Abnormal ECG Confirmed by SHIRA BAEZ, BARRY ([id number]), food expeditor MARY RICHARDS ([id number]) on 11/06/2018 9:51:37 PM Referred By: Confirmed By:BARRY SILVA MD
== END 2018-10-30 14:18 | disposition home or self-care (01) ==
LOC: ERS 07:05 → T4-A 10:00
PROVIDERS: ADMIT Family Medicine; ATTEND Family Medicine
DX: I13.0 Hypertensive heart and chronic kidney disease with heart failure and stage 1 through stage 4 chronic kidney disease, or unspecified chronic kidney disease (principal); N18.3 Chronic kidney disease, stage 3 (moderate); I50.9 Heart failure, unspecified; N17.9 Acute kidney failure, unspecified; D63.1 Anemia in chronic kidney disease; B18.2 Chronic viral hepatitis C; K74.60 Unspecified cirrhosis of liver; R18.8 Other ascites; I85.10 Secondary esophageal varices without bleeding; K72.90 Hepatic failure, unspecified without coma; F17.200 Nicotine dependence, unspecified, uncomplicated; E87.1 Hypo-osmolality and hyponatremia; E86.9 Volume depletion, unspecified; F10.11 Alcohol abuse, in remission; F19.11 Other psychoactive substance abuse, in remission; R74.0 Nonspecific elevation of levels of transaminase and lactic acid dehydrogenase [LDH]; T68.XXXA Hypothermia, initial encounter; S22.43XA Multiple fractures of ribs, bilateral, initial encounter for closed fracture; Z79.899 Other long term (current) drug therapy; Z59.0 Homelessness; Y93.55 Activity, bike riding
CPT/HCPCS: 36415; 36416; 71046; 80053; 82140; 84484; 85025; 85610; 85730; 87040; 93005; 94760; 96360; 96361; 96365; 96366; 96375; G0378; J0696; J2405; J7050; P9047

== ENCOUNTER 2018-11-09 23:33 | Emergency (ER) | payer SELFPAY | END 2018-11-10 01:03 | LOC: ERS 23:33 | DX: R07.81 Pleurodynia (principal); G89.29 Other chronic pain; I11.0 Hypertensive heart disease with heart failure; I50.9 Heart failure, unspecified; K74.60 Unspecified cirrhosis of liver; Z79.899 Other long term (current) drug therapy | CPT/HCPCS: 99281 ==